=== PATIENT | male | born 1980 | race Caucasian/White ===

== ENCOUNTER 2023-02-24 21:10 | Inpatient (IN) | payer OTHER, SELFPAY ==
--- OUTSIDE RECORDS SUMMARY | 2023-02-24 21:12 | XMS_ITS | Continuity of Care Document ---
Author Name Unknown Organization [facility] Address [address] [place] [address]- Care Team Providers Care Fuselage Framer Name Role Phone Joao Oviedo MD Primary Care Physician [phone] Encounter [facility] ACCT R [id number] Date(s): 01/08/23 - 02/07/23 [facility]/[place] [address]- Attending Physician: Malgorzata Pulido Admitting Physician: Malgorzata Pulido Referring Physician: AdmtrMalgorzata Allergies, Adverse Reactions, Alerts No Known Allergies Immunizations Given and Recorded Vaccine Date Status Refusal Reason influenza virus vaccine, inactivated 10/15/22 Give n Medications ammonium lactate 12% topical cream See Instructions, Apply to feet 2 times a day, # 385 Gm, 3 Refills, Maintenance, 10/28/22 10:02:00 EST, Cream, [facility]/pharmacy #[id number], Partial fill upon patient request if the prescription is for a schedule II opioid drug., Apply to feet 2 times a day, 16... Start Date: 10/28/22 Status: Ordered cloNIDine 0.1 mg oral tablet 0.1 mg, 1, tablet, By Mouth, 2 times a day, PRN, Refills 0, Maintenance, Anxiety, 11/16/22 14:33:00EST, Partial fill upon patient request if the prescription is for a schedule II opioid drug. Start Date: 11/16/22 Status: Ordered hydrochlorothiazide 25 mg oral tablet 12.5 mg, 0.5, tablet, By Mouth, Daily, # 15 tablet, Refills 2, Tot. Refills 2, Maintenance, 12/30/22 10:40:00 EST, Route to Pharmacy Electronically, [facility]/pharmacy #[id number], Partial fill upon patient request if the prescription is for a schedule II opioid... Start Date: 12/30/22 Status: Ordered hydrOXYzine hydrochloride 50 mg oral tablet 1 tablet = 50 mg, By Mouth, Every 6 hours, PRN as needed for anxiety Start Date: 11/16/22 Status: Ordered LaMICtal 25 mg oral tablet 25 mg, 1, tablet, By Mouth, Daily, Refills 0, Maintenance, 11/16/22 14:33:00 EST, Partial fill uponpatient request if the prescription is for a schedule II opioid drug. Start Date: 11/16/22 Status: Ordered SEROquel 50 mg oral tablet 1 tablet = 50 mg, By Mouth, 2 times a day, 0 Refills, Maintenance, 11/16/22 14:32:00 EST, Partial fill upon patient request if the prescription is for a schedule II opioid drug. Start Date: 11/16/22 Status: Ordered sertraline 100 mg oral tablet 1 tablet = 100 mg, By Mouth, Daily, # 30 tablet, 1 Refills, Maintenance, 12/29/22 13:38:00 EST, Tablet, [facility]/pharmacy #[id number], Partial fill upon patient request if the prescription is for a schedule II opioid drug., 168, cm, 12/09/22 15:04:00 EST, Height... Start Date: 12/29/22 Status: Ordered thiamine 100 mg oral tablet 100 mg, 1, tablet, By Mouth, Daily, # 30 tablet, Refills 3, Tot. Refills 3, Maintenance, 10/28/22 10:02:00 EST, Route to Pharmacy Electronically, [facility]/pharmacy #[id number], Partial fill upon patient requestif the prescription is for a schedule II opioid alonso... Start Date: 10/28/22 Status: Ordered traZODone 150 mg oral tablet TAKE 1 TABLET BY MOUTH AT BEDTIME Start Date: 01/08/23 Status: Ordered Problem List Condition Confirmation Course Effective Dates Status H ealth Status Informant Bipolar II disorder Confirmed Active Hyperlipidemia Confirmed Active Hypertension Confirmed Active PTSD (post-traumatic stress disorder) Confirmed Active Social History Social History Type Response Smoking Status Former smoker, quit more than 30 days ago; Interested in cessation: No; Patient wants NRT during admission Yes entered on: 01/08/23 Sex Patient Care team information Care Team Personnel Name: Joao Oviedo MD Position: S Primary Care Physician Member Role: PCP Address: Address: [address] [place] [id number]- Name: Nan Garcia RN Position: S RN Member Role: Primary Care Nurse Name: Kelly Murguia RN Position: S RN Member Role: Primary Care Nurse Name: Reina Rodriguez RN Position: S RN Member Role: Primary Care Nurse Care Team Related Persons Name: CARLOS LAYTON Address: [address] [place] [address]
--- OUTSIDE RECORDS SUMMARY | 2023-02-24 21:12 | XMS_ITS | Continuity of Care Document ---
Author Name Unknown Organization [facility] Address [address] [place], [place] [id number]- Care Team Providers Care Disk Grinder Name Role Phone Joao Oviedo MD Primary Care Physician Encounter [facility] ACCT R [id number] Date(s): 12/29/22 - 01/28/23 [facility]/[place] [address]- Attending Physician: Malgorzata Pulido Admitting Physician: Malgorzata Pulido Referring Physician: AdmtrMalgorzata Allergies, Adverse Reactions, Alerts No Known Allergies Immunizations Given and Recorded Vaccine Date Status Refusal Reason influenza virus vaccine, inactivated 10/15/22 Give n Medications ammonium lactate 12% topical cream See Instructions, Apply to feet 2 times a day, # 385 Gm, 3 Refills, Maintenance, 10/28/22 10:02:00 EST, Cream, [facility]/pharmacy #[id number], Partial fill upon patient request if the [...] 12/30/22 10:40:00 EST, Route to Pharmacy Electronically, [facility]/pharmacy #[id number], Partial fill upon patient request if the [...] 1 Refills, Maintenance, 12/29/22 13:38:00 EST, Tablet, [facility]/pharmacy #[id number], Partial fill upon patient request if the prescription is for a schedule II opioid drug., 168, cm, 12/09/22 15:04:00 EST, Height... Start Date: 12/29/22 Status: Ordered thiamine 100 mg oral tablet 100 mg, 1, tablet, By Mouth, Daily, # 30 tablet, Refills 3, Tot. Refills 3, Maintenance, 10/28/22 10:02:00 EST, Route to Pharmacy Electronically, [facility]/pharmacy #[id number], Partial fill upon patient requestif the prescription [...] Care Physician Member Role: PCP Address: Address: [address] [place] [address] [place] [address]- Name: Nan Garcia RN Position: S RN Member Role: Primary Care Nurse Name: Kelly Murguia RN Position: S RN Member Role: Primary Care Nurse Name: Reina Rodriguez RN Position: S RN Member Role: Primary Care Nurse Care Team Related Persons Name: CARLOS LAYTON Address: [address] [place] [address]
--- OUTSIDE RECORDS SUMMARY | 2023-02-24 21:12 | XMS_ITS | Continuity of Care Document ---
Author Name Unknown Organization [facility] Address [address] [place] [id number]- Care Team Providers Care Audiometrist Name Role Phone Joao Oviedo MD Primary Care Physician [phone] Encounter [facility] Date(s): 12/23/22 - 02/11/[address] [address]- Attending Physician: Tristen Calderon MD Admitting Physician: Tristen Calderon MD Allergies, Adverse Reactions, Alerts No Known Allergies Immunizations Given and Recorded Vaccine Date Status Refusal Reason influenza virus vaccine, inactivated 10/15/22 Give n Medications ammonium lactate 12% topical cream See Instructions, Apply to feet 2 times a day, # 385 Gm, 3 Refills, Maintenance, 10/28/22 10:02:00 EST, Cream, [facility]/pharmacy #[id number], Partial fill upon patient request if the [...] 12/30/22 10:40:00 EST, Route to Pharmacy Electronically, [facility]/pharmacy #[id number], Partial fill upon patient request [...] 1 Refills, Maintenance, 12/29/22 13:38:00 EST, Tablet, [facility]/pharmacy #[id number], Partial fill upon patient request if the prescription is for a schedule II opioid drug., 168, cm, 12/09/22 15:04:00 EST, Height... Start Date: 12/29/22 Status: Ordered thiamine 100 mg oral tablet 100 mg, 1, tablet, By Mouth, Daily, # 30 tablet, Refills 3, Tot. Refills 3, Maintenance, 10/28/22 10:02:00 EST, Route to Pharmacy Electronically, [facility]/pharmacy #[id number], Partial fill upon patient requestif the prescription [...] Care Physician Member Role: PCP Address: Address: [address] [place] [id number] Name: Nan Garcia RN Position: S RN Member Role: Primary Care Nurse Name: Kelly Murguia RN Position: S RN Member Role: Primary Care Nurse Name: Reina Rodriguez RN Position: S RN Member Role: Primary Care Nurse Care Team Related Persons Name: CARLOS LAYTON Address: [address] [address]
--- OUTSIDE RECORDS SUMMARY | 2023-02-24 21:12 | XMS_ITS | Continuity of Care Document ---
Author Name Unknown Organization [facility] ter Address [address] [place] [id number]- Care Team Providers Care Senior Account Director Name Role Phone Joao Oviedo MD Primary Care Physician [place] [facility] [place] - 11/18/[address] [id number]- Encounter Diagnosis Laceration of left upper extremity(Final) - 11/16/22 Laceration of left upper extremity(Final) - 11/17/22 Discharge Disposition: Transfer to [facility] Attending Physician: Rand Griffin MD Admitting Physician: Obed Thomas DO Referring Physician: Not on Staff, Referring MD Allergies, Adverse Reactions, Alerts No Known Allergies Immunizations Given and Recorded Vaccine Date Status Refusal Reason influenza virus vaccine, inactivated 10/15/22 Give n Medications ammonium lactate 12% topical cream See Instructions, Apply to feet 2 times a day, # 385 Gm, 3 Refills, Maintenance, 10/28/22 10:02:00 EST, Cream, [id number], Partial fill upon patient request if the prescription is for a schedule II opioid drug., Apply to feet 2 times a day, 16... Start Date: 10/28/22 Status: Ordered cloNIDine 0.1 mg oral tablet 0.1 mg, 1, tablet, By Mouth, 2 times a day, # 60 tablet, Refills 3, Tot. Refills 3, Maintenance, 10/28/22 10:02:00 EST, Route to Pharmacy Electronically, [id number], Partial fill upon patientrequest if the prescription is for a schedule II op... Start Date: 10/28/22 Status: Ordered cloNIDine 0.1 mg oral tablet 0.1 mg, 1, tablet, By Mouth, 2 times a day, PRN, Refills 0, Maintenance, Anxiety, 11/16/22 14:33:00EST, Partial fill upon patient request if the prescription is for a schedule II opioid drug. Start Date: 11/16/22 Status: Ordered fluticasone 50 mcg/inh nasal spray 1 sprays, Nares, Both, 2 times a day, # 16 Gm, 5 Refills, Maintenance, 10/28/22 10:01:00 EST, [place], [id number], Partial fill upon patient request if the prescription is for a schedule II opioid drug., 1 sprays Nares, Both 2 times a day, 167,... Start Date: 10/28/22 Status: Ordered hydrochlorothiazide 25 mg oral tablet 12.5 mg, 0.5, tablet, By Mouth, Daily, # 15 tablet, Refills 3, Tot. Refills 3, Maintenance, 10/28/22 10:02:00 EST, [id number] fill upon patient request if the prescription is for a schedule II opioid... Start Date: 10/28/22 Status: Ordered hydrochlorothiazide 25 mg oral tablet 12.5 mg, 0.5, tablet, By Mouth, Daily Start Date: 11/16/22 Status: Ordered hydrOXYzine hydrochloride 50 mg oral tablet 1 tablet = 50 mg, By Mouth, Daily, PRN anxiety, PRN every 6 hours for anxiety, # 30 tablet, 3 Refills, Maintenance, 10/28/22 10:02:00 EST, Tablet, [id number], Partial fill upon patient request if the prescription is for a schedule II opioid dr... Start Date: 10/28/22 Status: Ordered hydrOXYzine hydrochloride 50 mg oral [...] mg, By Mouth, 2 times a day, # 60 tablet, 3 Refills, Maintenance, 10/28/22 10:02:00 EST, Tablet, [id number], Partial fill upon patient request if the prescription is for a schedule II opioid drug., 167, cm, 10/28/22 9:14:00 EST,... Start Date: 10/28/22 Status: Ordered SEROquel 50 mg oral tablet 1 tablet = 50 mg, By Mouth, 2 times a day, 0 Refills, Maintenance, 11/16/22 14:32:00 EST, Partial fill upon patient request if the prescription is for a schedule II opioid drug. Start Date: 11/16/22 Status: Ordered sertraline 100 mg oral tablet 1 tablet = 100 mg, By Mouth, Daily, # 30 tablet, 3 Refills, Maintenance, 10/28/22 10:02:00 EST, Tablet, [id number], Partial fill upon patient request if the prescription is for a schedule II opioid drug., 167, cm, 10/28/22 9:14:00 EST, Height,... Start Date: 10/28/22 Status: Ordered thiamine 100 mg oral tablet 100 mg, 1, tablet, By Mouth, Daily, # 30 tablet, Refills 3, Tot. Refills 3, Maintenance, 10/28/22 10:02:00 EST, Route to Pharmacy Electronically, [id number], Partial fill upon patient requestif the prescription is for a schedule II opioid alonso... Start Date: 10/28/22 Status: Ordered traZODone 150 mg oral tablet 1 tablet = 150 mg, By Mouth, Daily at bedtime, PRN Insomnia, PRN insomnia, # 30 tablet, 3 Refills, Maintenance, 10/28/22 10:02:00 EST, Tablet, [facility] #[id number], Partial fill upon patient request ifthe prescription is for a schedule II opioid drug.,... Start Date: 10/28/22 Status: Ordered traZODone 150 mg oral tablet 1 tablet = 150 mg, By Mouth, Daily at bedtime, 0 Refills, Maintenance, 11/16/22 14:33:00 EST, Partial fill upon patient request if the prescription is for a schedule II opioid drug. Start Date: 11/16/22 Status: Ordered Vitamin B1 100 mg oral tablet 100 mg, 1, tablet, By Mouth, Daily, Refills 0, Maintenance, 11/16/22 14:32:00 EST, Partial fill upon patient request if the prescription is for a schedule II opioid drug. Start Date: 11/16/22 Status: Ordered Zoloft 100 mg oral tablet 1 tablet = 100 mg, By Mouth, Daily, 0 Refills, Maintenance, 11/16/22 14:32:00 EST, Partial fill upon patient request if the prescription is for a schedule II opioid drug. Start Date: 11/16/22 Status: Ordered Problem List Condition Confirmation Course Effective Dates Status H ealth Status Informant Bipolar II disorder Confirmed Active Hyperlipidemia Confirmed Active Hypertension Confirmed Active PTSD (post-traumatic stress disorder) Confirmed Active Vital Signs Most recent to oldest [Reference Range]: 1 2 3 Height 168 cm (11/18/22 3:30 PM) 168 cm (11/17/22 3:06 PM) 168 cm (11/16/22 6:29 PM) Weight 73 kg (11/16/22 6:29 PM) Oxygen Saturation [94-100 %] 97 % (11/18/22 3:30 PM) 98 % (11/18/22 5:00 AM) 99 % (11/17/22 7:00 PM) Pulse Rate [55-90 bpm] 91 bpm *H* (11/18/22 3:30 PM) 64 bpm (11/18/22 5:00 AM) 100 bpm *H* (11/17/22 7:00 PM) Body Mass Index [18.5-24.99 kg/m2] 25.86 kg/m2 *H* (11/16/22 6:29 PM) Blood Pressure [90-138/55-84 mm Hg] 152/78mm Hg *H* (11/18/22 3:30 PM) 120/70mm Hg (11/18/22 5:00 AM) 140/73mm Hg *H* (11/17/22 7:00 PM) Respiratory Rate [16-30 br/min] 18 br/min (11/18/22 3:30 PM) 14 br/min *L* (11/18/22 5:00 AM) 16 br/min (11/17/22 7:00 PM) Temperature [96.8-100.4 DegF] 98.0 DegF (11/18/22 3:30 PM) 97.7 DegF (11/18/22 5:00 AM) 97.5 DegF (11/17/22 7:00 PM) Mode of Delivery (Oxygen) Room air (11/18/22 3:30 PM) Room air (11/18/22 5:00 AM) Room air (11/17/22 7:00 PM) Blood pressure sites Arm, right (11/18/22 3:30 PM) Arm, right (11/18/22 5:00 AM) Arm, right (11/17/22 7:00 PM) Temperature Route Oral (11/18/22 3:30 PM) Oral (11/18/22 5:00 AM) Oral (11/17/22 7:00 PM) Dry Weight 70 kg (11/16/22 6:29 PM) Weight Obtained Via Patient/family state d (11/16/22 6:29 PM) Dry Weight Obtained Via Bed scale (11/16/22 6:29 PM) Social History Social History Type Response Smoking Status 10 or more cigarette s (1/2 pack or more)/day in last 30 days; Interested in cessation: No; Patient wants NRT during admission Yes entered on: 10/14/22 Sex History and physical note * Jaime LORENZ, Roshan Iraheta: PERFORM, MODIFY Event Display: History and Physical Hospital Authored Date: Patient: ??CARLOS RIVERS ? Age:??42 Years?Sex:??Male?:??1980?? Chief Complaint/Reason for Consultation Left upper extremity laceration, suicidal attempt History of Present Illness 42-year-old male with history of hypertension, hyperlipidemia, bipolar 2 disorder, depression, anxiety,??and PTSD??brought to the??emergency room [place]-inflicted laceration to his left upper arm.?? He was endorsing suicidal ideation.?? He states he has been very depressed as his mother recently .?? He tried to cut his left upper arm with a razor blade at approximately 10:30 AM.?? First responders noted approximately 1/2 L of brightred blood on the scene, and the tourniquet was placed at 10:45 AM.?? He was brought to the emergency room for evaluation. ?? In the emergency room, the patient was evaluated by the trauma service with otherwise normal primary and secondary surveys.?? Tourniquet was removed at 11:08 AM, and distal pulses were noted to be with no active bleeding from the left antecubital area.?? The patient was given 2 g of IV Ancef along with a tetanus booster.?? The patient underwent closure of the left AC superficial wound with 4 interrupted sutures and dry dressing was placed.?? He was also noted to have 0.5 cm laceration to the left thenar eminence, for which Steri- Strips were placed.?? Trauma surgery has signed off, and the patient is admitted for psychiatric evaluation. ?? On my evaluation, patient denies taking any substances or alcohol use.?? He has not had recent fever or illness otherwise.?? He remains tearful at this time but endorses that he is safe in the exam room in the emergency room.?? He has not been taking any of his previously prescribed medications. Review of Systems Other than those positives as noted in the HPI above, the remaining comprehensive 14-point review of systems is negative. Objective ? Vital Signs?? Temperature: 98 DegF (11/16/22 11:44:00) Pulse Rate: 68 bpm (11/16/22 11:44:00) Respiratory Rate: 18 br/min (11/16/22 11:44:00) Systolic Blood Pressure: 133 mm Hg (11/16/22 11:44:00) Diastolic Blood Pressure: 80 mm Hg (11/16/22 11:44:00) Blood pressure sites: Arm, right (11/16/22 11:44:00) Mean Arterial Pressure: 98 mm Hg (11/16/22 11:44:00) Pulse Pressure: 53 mm Hg (11/16/22 11:44:00) Oxygen Saturation: 98 % (11/16/22 11:44:00) Mode of Delivery (Oxygen): Room air (11/16/22 11:44:00) Early Warning Score: 1 (11/16/22 12:13:45) ? Pain Scores 1 - 10 Pain Scale Score: 0 (11:44) ? Physical Exam General Appearance: Alert, appears stated age, tearful, answers questions appropriately HEENT: Normocephalic, atraumatic, PERRL, EOMI, no scleral icterus, no facial droop,??dry mucous membranes, no oropharynx lesions?? Neck: Supple, no JVD, no C-Spine tenderness, no LAD Cardiac: RRR, S1 & S2 present, no m / r / g appreciated Chest: Clear to auscultation bilaterally, no wheezing / ronchi / rales, no tenderness to percussion Abdomen: Soft, nontender, no distention, no rebound or guarding, no masses, no organomegaly, normalbowel sounds in all quadrants Extremities: No clubbing, cyanosis, or edema. ??2+ distal pulses. ??Capillary refill < 3 seconds.?Dry dressings in place to left AC and left hand Skin: Warm, dry Neuro: ??A & O x 3, CN III-XII intact, strength 5/5 of upper / lower extremities bilaterally, gross sensation intact Psych: ??Stable mood, appropriate affect Assessment/Plan Assessment:??42-year-old male with history of hypertension, hyperlipidemia, bipolar 2 disorder, depression, anxiety, and PTSD brought to the emergency room this [place] with a self-inflicted laceration to his left upper arm. He was endorsing suicidal ideation.??Trauma surgery has repaired his wounds and signed off.??He requires psychiatric evaluation. ?? Depression with suicidal ideation (F32.A):??Patient currently endorses??feeling safe in the emergency room??exam room.??He has not been taking any of his previously prescribed medications. 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 Resume previously prescribed sertraline, quetiapine,??and trazodone as needed. Hydroxyzine will be ordered as needed for anxiety. Psychiatric consultation requested. ?? Laceration of left upper extremity (S41.112A):??The patient??has undergone??laceration repair by the trauma surgery service??with 4 sutures??to the left AC and Steri-Strips to the left thenar eminence. He will need follow-up with surgery at approximately 1 to 2 weeks for suture removal. Dry dressings will be kept in place and changed daily. No further indication for antibiotics. ?? Hyponatremia (E87.1) Metabolic acidosis (E87.2) RICARDO (acute kidney injury) (N17.9):??I suspect the patient is mildly dehydrated on exam. He looks??somewhat dry. He has previously been on hydrochlorothiazide??but not taking recently. Check urine electrolytes, creatinine, urinalysis, and urine toxicology. Hold off HCTZ. Gentle IVF hydration tonight with LR at 100 cc/hr. Follow up metabolic panel in morning. ?? Hypertension (I10):??Blood pressure currently stable, not taking any medications. He has mild renal insufficiency with metabolic acidosis and mild hyponatremia as outlined. We are awaiting urine studies. Will monitor blood pressure off medications??for now??(previously was prescribed low-dose hydrochlorothiazide). ?? VTE Prophylaxis:??SCDs. ?VTE Prophylaxis Assessment:??VTE Prophylaxis Ordered ?? Code Status:??FULL. ?Order Code Status:??Code Status Ordered ?? Discharge Planning:??Disposition pending psychiatric consultation;??likely transfer to [facility] as he is medically cleared. ?? I spent a total of??75 minutes today reviewing the chart / medical records, evaluating the patient,evaluating and interpreting laboratory and imaging data, formulating and discussing the treatment plan, and documenting the encounter. ? Histories Allergies Allergies ?(Active and Proposed Allergies Only) NKA? (Severity: Unknown severity, Onset: Unknown) ? Past Medical History/Problem List Active Problems??(4) Bipolar II disorder Hyperlipidemia Hypertension PTSD (post-traumatic stress disorder) ? Past Surgical History No surgery history documented. ? Social History The patient lives with his father.?? His mother recently . Tobacco:?? 1/2-1 ppd cigarettes. ETOH:?? Denies. Drugs:?? Denies currently, previous cocaine and marijuana. ? Family History Family history of??depression and opioid use disorder in father. Family history of ETOH use disorder in mother. ? Medications Home Medications Ammonium Lactate 12% (ammonium lactate 12% topical cream)?APPLY TOPICALLY TO FEET TWO TIMES A DAY Erythromycin Ophthalmic (erythromycin 0.5% ophthalmic ointment)?APPLY 1/2 INCH RIBBON TO LEFT EYE FOUR TIMES A DAY DIRECTED Hydrochlorothiazide (hydrochlorothiazide 25 mg oral tablet)?TAKE 1/2 TABLET BY MOUTH EVERY DAY HydrOXYzine (hydrOXYzine hydrochloride 50 mg oral tablet)?TAKE 1 TABLET BY MOUTH EVERY 6 HOURS NEEDED FOR ANXIETY Miscellaneous Rx (VITAMIN B-1 100 MG TABS)?TAKE 1 TABLET BY MOUTH EVERY DAY Quetiapine (QUEtiapine 50 mg oral tablet)?TAKE 1 TABLET BY MOUTH 2 TIMES A DAY Sertraline (sertraline 100 mg oral tablet)?TAKE 1 TABLET BY MOUTH DAILY Trazodone (traZODone 150 mg oral tablet)?TAKE 1 TABLET BY MOUTH AT BEDTIME ? Results Recent Labs BLOOD BANK Blood Type O Positive ()?? 11/16/2022 11:09 Antibody Screen Negative ()?? 11/16/2022 11:09 ?? BLOOD COUNT & DIFF WBC 11.4 k/mm3 (High)?? 11/16/2022 11:17 RBC 5.10 m/mm3 ()?? 11/16/2022 11:17 Hgb 15.0 Gm/dL ()?? 11/16/2022 11:17 Hct 45.1 % ()?? 11/16/2022 11:17 MCV 88.4 femtoliters ()?? 11/16/2022 11:17 MCH 29.4 pg ()?? 11/16/2022 11:17 MCHC 33.3 g/dL ()?? 11/16/2022 11:17 Platelet Count 202 k/mm3 ()?? 11/16/2022 11:17 RDW-SD 42.5 femtoliters ()?? 11/16/2022 11:17 MPV 8.6 femtoliters (Low)?? 11/16/2022 11:17 Nucleated RBC (Automated) 0.0 #/100 WBC'S ()?? 11/16/2022 11:17 Abs. NRBC 0.0 k/mm3 ()?? 11/16/2022 11:17 Abs. Neut 8.0 k/mm3 (High)?? 11/16/2022 11:17 Abs. Lymph 2.0 k/mm3 ()?? 11/16/2022 11:17 Abs. [place] 1.2 k/mm3 ()?? 11/16/2022 11:17 Abs. Eo 0.1 k/mm3 ()?? 11/16/2022 11:17 Abs. Baso 0.0 k/mm3 ()?? 11/16/2022 11:17 Neut % 70.4 % ()?? 11/16/2022 11:17 Lymph % 17.2 % ()?? 11/16/2022 11:17 [place] % 10.7 % (High)?? 11/16/2022 11:17 Eos % 0.8 % ()?? 11/16/2022 11:17 Baso % 0.3 % ()?? 11/16/2022 11:17 Imm Gran 0.6 % ()?? 11/16/2022 11:17 Abs. Imm Gran 0.1 k/mm3 ()?? 11/16/2022 11:17 ?? CHEM GENERAL Sodium 132 mmol/L (Low)?? 11/16/2022 11:17 Potassium 4.5 mmol/L ()?? 11/16/2022 11:17 Chloride 94 mmol/L (Low)?? 11/16/2022 11:17 Bicarbonate Level 19 mmol/L (Low)?? 11/16/2022 11:17 Anion Gap 19 (High)?? 11/16/2022 11:17 Glucose Level 71 mg/dL ()?? 11/16/2022 11:17 BUN 25 mg/dL (High)?? 11/16/2022 11:17 Creatinine-Blood 1.1 mg/dL ()?? 11/16/2022 11:17 Estimated GFR Creatinine 54 ML/MIN/1.73 M2 ()?? 11/16/2022 11:17 Calcium 9.1 mg/dL ()?? 11/16/2022 11:17 Amylase 120 units/L (High)?? 11/16/2022 11:17 ?? COAG INR 1.1 ()?? 11/16/2022 11:17 Protime (PT) 11.5 seconds (High)?? 11/16/2022 11:17 APTT 28.2 seconds ()?? 11/16/2022 11:17 ?? MISC. CHEMISTRY Hold Red Top SPECIMEN DISCARDED AFTER 1 WEEK ()?? 11/16/2022 11:17 ?? TOXICOLOGY/TDM Ethanol, Serum or Plasma NONE DETECTED mg/dL ()?? 11/16/2022 11:17 ?? VIROLOGY COVID-19 by RT-PCR NEGATIVE ()?? 11/16/2022 11:09 ? Hospital Progress note * Gaby LORENZ, Rand Hayes: PERFORM, MODIFY Event Display: Progress Note Hospital Authored Date: Patient: ??CARLOS RIVERS ? Age:??42 Years?Sex:??Male?:??1980?? Subjective patient was seen and examined at the bedside still asking about prostate biopsy He denies active complaints of fever, chills, abdominal pain,??shortness of breath or chest pain Psychiatry on board,??inpatient??psych bed??search has begun Review of Systems As above otherwise negative Objective Measurements?? Height: 168 cm (11/18/22) Weight: 73 kg (11/16/22) Dry Weight: 70 kg (11/16/22) Body Mass Index:??25.86 kg/m2??High (11/16/22) ? Vital Signs?? Temperature: 98 DegF (11/18/22 15:30:00) Temperature Route: Oral (11/18/22 15:30:00) Pulse Rate:??91 bpm??High (11/18/22 15:30:00) Respiratory Rate: 18 br/min (11/18/22 15:30:00) Systolic Blood Pressure:??152 mm Hg??High (11/18/22 15:30:00) Diastolic Blood Pressure: 78 mm Hg (11/18/22 15:30:00) Blood pressure sites: Arm, right (11/18/22 15:30:00) Mean Arterial Pressure: 103 mm Hg (11/18/22 15:30:00) Pulse Pressure: 74 mm Hg (11/18/22 15:30:00) Oxygen Saturation: 97 % (11/18/22 15:30:00) Mode of Delivery (Oxygen): Room air (11/18/22 15:30:00) Early Warning Score: 0 (11/18/22 15:31:02) ? Intake/Output? 11/16 12:08 11/18 07:00 11/17 07:00 11/16 07:00 11/15 07:00 ?? 11/18 16:05 11/18 16:05 11/18 06:59 11/17 06:59 11/16 06:59 Intake ? 1600 ?0 ?400 ? 1200 ?0 Output ?0 ?0 ?0 ?0 ?0 Net Total ? 1600 ?0 ?400 ? 1200 ?0 ? Physical Exam General:??Young,??laying comfortably in bed, not in any distress Heart: S1-S2 heard, rate rhythm regular Lungs: Clear to auscultation Abdomen: Soft, nontender, nondistended, bowel sounds present Extremity:??No pedal edema, left??cubital fossa has??sutures in place.?? Suture??repair??clean, without any evidence of infection. Neuro: Alert and oriented, grossly no focal deficit Psych:??Depressed mood, flat affect _ Inpatient Medications Medications (16) Active SCHEDULED: (5) NaCl 0.9% Flush 3ml (NaCL 0.9% Flush) ??3 mL, IV Push, Every 8 hours Nicotine 14 mg / 24 hour Patch (Nicotine Topical) ??14 mg, Topically, Daily Quetiapine 25 mg Tablet (QUEtiapine 25 mg oral tablet) ??50 mg, By Mouth, 2 times a day Remove Patch (Remove ??Patch) ??1 each, Topically, Daily Sertraline 50 mg Tablet (sertraline 50 mg oral tablet) ??100 mg, By Mouth, Daily CONTINUOUS: (1) Lactated Ringers (1000 mL) Cont IV 1,000 mL (LR 1,000 mL) ??1,000 mL, IV Infusion, 100 mL/hr PRN: (10) Acetaminophen 325 mg Tablet (Acetaminophen Tablet) ??650 mg, By Mouth, Every 4 hours Dextromethorphan-Guaifenesin 20 mg-200 mg/10 mL Liqu UD (Robitussin DM Liquid) ??10 mL, By Mouth, Every 4 hours HydrOXYzine Pamoate 25mg Capsule (hydrOXYzine pamoate 25 mg oral capsule) ??25 mg, By Mouth, Every 6 hours Melatonin 3 mg Tablet (Melatonin Tablet) ??3 mg, By Mouth, Daily at bedtime NaCl 0.9% Flush 3ml (NaCL 0.9% Flush) ??3 mL, IV Push, Every 8 hours Olanzapine 5 mg Tablet (ZyPREXA 5 mg oral tablet) ??5 mg, By Mouth, 2 times a day Polyethylene Glycol 17 Gm Powder (MiraLax Powder) ??17 Gm 1 pack/packet, By Mouth, Daily Senna 8.6 mg / Docusate 50 mg tablet (Docusate/Senna Tablet) ??1 tablet, By Mouth, 2 times a day Simethicone 80 mg Chewable Tablet (Simethicone Tablet) ??80 mg, Chew, 3 times a day Trazodone 50 mg Tablet (traZODone 50 mg oral tablet) ??50 mg, By Mouth, Daily at bedtime ? Results Recent Labs BLOOD COUNT & DIFF WBC 7.5 k/mm3 ()?? 11/18/2022 02:46 RBC 4.52 m/mm3 (Low)?? 11/18/2022 02:46 Hgb 13.2 Gm/dL (Low)?? 11/18/2022 02:46 Hct 40.0 % (Low)?? 11/18/2022 02:46 MCV 88.5 femtoliters ()?? 11/18/2022 02:46 MCH 29.2 pg ()?? 11/18/2022 02:46 MCHC 33.0 g/dL ()?? 11/18/2022 02:46 Platelet Count 181 k/mm3 ()?? 11/18/2022 02:46 RDW-SD 42.0 femtoliters ()?? 11/18/2022 02:46 MPV 9.0 femtoliters (Low)?? 11/18/2022 02:46 Nucleated RBC (Automated) 0.0 #/100 WBC'S ()?? 11/18/2022 02:46 Abs. NRBC 0.0 k/mm3 ()?? 11/18/2022 02:46 Abs. Neut 4.8 k/mm3 ()?? 11/17/2022 00:44 Abs. Lymph 2.6 k/mm3 ()?? 11/17/2022 00:44 Abs. [place] 1.3 k/mm3 ()?? 11/17/2022 00:44 Abs. Eo 0.1 k/mm3 ()?? 11/17/2022 00:44 Abs. Baso 0.0 k/mm3 ()?? 11/17/2022 00:44 Neut % 53.4 % ()?? 11/17/2022 00:44 Lymph % 28.7 % ()?? 11/17/2022 00:44 [place] % 15.0 % (High)?? 11/17/2022 00:44 Eos % 1.5 % ()?? 11/17/2022 00:44 Baso % 0.3 % ()?? 11/17/2022 00:44 Imm Gran 1.1 % ()?? 11/17/2022 00:44 Abs. Imm Gran 0.1 k/mm3 ()?? 11/17/2022 00:44 ?? CHEM GENERAL Sodium 137 mmol/L ()?? 11/18/2022 02:46 Potassium 4.7 mmol/L ()?? 11/18/2022 02:46 Chloride 103 mmol/L ()?? 11/18/2022 02:46 Bicarbonate Level 27 mmol/L ()?? 11/18/2022 02:46 Anion Gap 7 ()?? 11/18/2022 02:46 Glucose Level 105 mg/dL (High)?? 11/18/2022 02:46 BUN 13 mg/dL ()?? 11/18/2022 02:46 Creatinine-Blood 1.0 mg/dL ()?? 11/18/2022 02:46 Estimated GFR Creatinine 101 ML/MIN/1.73 M2 ()?? 11/18/2022 02:46 Calcium 8.9 mg/dL ()?? 11/18/2022 02:46 Phosphorus 3.5 mg/dL ()?? 11/17/2022 00:44 Magnesium 1.9 mg/dL ()?? 11/17/2022 00:44 Protein, Total 5.6 Gm/dL (Low)?? 11/17/2022 00:44 Albumin 3.6 Gm/dL ()?? 11/17/2022 00:44 AG Ratio 1.8 ()?? 11/17/2022 00:44 Alkaline Phosphatase 67 units/L ()?? 11/17/2022 00:44 AST (SGOT) 74 units/L (High)?? 11/17/2022 00:44 ALT (SGPT) 38 units/L ()?? 11/17/2022 00:44 Bilirubin, Total 0.5 mg/dL ()?? 11/17/2022 00:44 ? Assessment/Plan Chief Complaint: Left upper extremity laceration, suicidal attempt ?? Diagnoses Laceration of left upper extremity ??(S41.112A) 1. ??Depression with suicidal ideation ??(F32.A) 2. ??Laceration of left upper extremity ??(S41.112A) 3. ??Hyponatremia ??(E87.1) 4. ??Metabolic acidosis ??(E87.2) 5. ??RICAROD (acute kidney injury) ??(N17.9) 6. ??Hypertension ??(I10) ?? 42-year-old male with history of hypertension, hyperlipidemia, bipolar 2 disorder, depression, anxiety, and PTSD brought to the emergency room [place] self-inflicted laceration to his left upper arm. He was endorsing suicidal ideation.??Trauma surgery has repaired his wounds and signed off.??He requires psychiatric evaluation. ?? Depression with suicidal ideation (F32.A):?? Seen by psychiatry in consult today. ??Continues to have significant??depression, and at risk of??harming self. ??Psychiatry recommended continuing??one-to-one constant supervision. ??Will need inpatient psychiatric admission??when medically cleared. ??Discussed with??psychiatry, patient most likely??will be cleared this afternoon/tomorrow morning. ??Will need??bed search for psychiatric??hospitalization. Continue current dose??of sertraline, quetiapine and??trazodone. Hydroxyzine as needed for anxiety.? Add PRN??Zyprexa 5mg q6 hours??for agitation per psychiatry recommendations Sutures removed, inpatient psych bed search has begun. ?? Laceration of left upper extremity (S41.112A):??The patient??has undergone??laceration repair by the trauma surgery service??with 4 sutures??to the left AC and Steri-Strips to the left thenar eminence. He will need follow-up with surgery at approximately 1 to 2 weeks for suture removal. Dry dressings will be kept in place and changed daily. No further indication for antibiotics. ?? Hyponatremia (E87.1) Metabolic acidosis (E87.2) Dehydration. U tox positive for cocaine Hyponatremia and metabolic acidosis improved with IV fluids. Creatinine stable. Will discontinue IV fluids. ?? Elevated??PSA. Patient asking about prostate biopsy??while he is here.? Informed patient??as an outpatient and procedure and will be??done??outpatient.?? However patient did state that??one of his reasons for depression was??that??he was informed that??he may have prostate cancer.?? I??discussed with urology PA,??confirmed that biopsy cannot be done inpatient.?? No she does not??patient to follow-up with urology??at the earliest??possible outpatient.?? Patientto contact??[facility] urology at [phone]??scheduling biopsy. ?? Hypertension (I10):??Blood pressure currently stable, not taking any medications. Will monitor blood pressure off medications??for now??(previously was prescribed low-dose hydrochlorothiazide). ? VTE Prophylaxis:??SCDs. ?VTE Prophylaxis Assessment:??VTE Prophylaxis Ordered ?? Code Status:??FULL. ?Order Code Status:??Code Status Ordered ?? Discharge Planning:??He is medically clear??for discharge to inpatient Psych bed ? * Kelley Goldstein MD: PERFORM, SIGN, VERIFY Event Display: Progress Note Hospital Authored Date: [id number] Patient: CARLOS RIVERS Age: 42 years Sex: Male : 1980 Associated Diagnoses: None Author: Kelley Goldstein MD Consultation Information Patient medically cleared. He has been referred to crisis team for inpatient psychiatric bed search. Please continue safety precautions including 1:1. He cannot leave AMA. Kelley Goldstein MD Psychiatry Consultation Service * Magdalena Langston LPN: PERFORM, SIGN, VERIFY Event Display: Progress Note Hospital Authored Date: [id number] Patient: CARLOS RIVERS Age: 42 years Sex: Male : 1980 Associated Diagnoses: None Author: Magdalena Langston LPN Findings Evaluation Pt alert and oriented x 4. Flat effect. Able to make his needs known. Denies pain/discomfort. Refusing pm meds. Pt denies any self harm this shift. 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 Pt resting in bed. Bed locked and in the lowest position. Call alvarez in reach. Safety maintained. . Note * Nabila Soto: PERFORM Event Display: Discharge/Transfer Note Hospital Authored Date: [id number] Nursing Discharge Note Entered On: 11/18/2022 18:39 EST Performed On: 11/18/2022 18:38 EST by Nabila Soto Nursing Discharge Note 2 Discharge Time : 11/18/2022 18:30 EST Discharge Level of Care at Discharge : Psychiatric Facility/Unit Patient Left Unit Via : Ambulance Patient Accompanied Off Unit with : Responsible adult DC Instructions Provided & Signed by Pt : Unable Patient Understands D/C Instructions : Unable Patient Instructions Discharge Signed : No Did Pt have Specialty Bed or Wound Vac : No Nabila Soto - 11/18/2022 18:38 EST Patient Care team information Care Team Personnel Name: Joao Oviedo MD Position: [facility] Primary Care Physician Member Role: PCP Address: Address: [address] [place] [address]- Name: Nan Garcia RN Position: [facility] RN Member Role: Primary Care Nurse Name: Leanna Mosley RN Position: [facility] RN Member Role: Primary Care Nurse Name: Kelly Murguia RN Position: [facility] RN Member Role: Primary Care Nurse Name: Reina Rodriguez RN Position: [facility] RN Member Role: Primary Care Nurse Name: *[facility], Trauma Attending Position: [facility] ED Attendings Patient Name: *[facility], Trauma Resident Position: [facility] ED Medicine MD Name: Mickie Adorno RN Position: [facility] ED RN W/OE and Tasks Member Role: Patient Care Provider Name: Ana Nice Position: [facility] ED TA [facility] Care Team Related Persons Name: CARLOS RIVERS Address: [address] [address]
--- OUTSIDE RECORDS SUMMARY | 2023-02-24 21:12 | XMS_ITS | Continuity of Care Document ---
Author Name Unknown Organization [facility] Address [address] [place] [id number]- Care Team Providers Care Sonography Technician Name Role Phone Joao Oviedo MD Primary Care Physician [phone] [id number] 12/29/22 - 01/28/23 [facility]/[place] [address]- [place] Allergies, Adverse Reactions, Alerts No Known Allergies Immunizations Given and Recorded Vaccine Date Status Refusal Reason influenza virus vaccine, inactivated 10/15/22 Give n Medications ammonium lactate 12% topical cream See Instructions, Apply to feet 2 times a day, # 385 Gm, 3 Refills, Maintenance, 10/28/22 10:02:00 EST, Cream, [facility]/pharmacy #[id number], Partial fill upon patient request if the [...] 12/30/22 10:40:00 EST, Route to Pharmacy Electronically, [facility]/pharmacy #[id number], Partial fill upon patient request if [...] 1 Refills, Maintenance, 12/29/22 13:38:00 EST, Tablet, [facility]/pharmacy #[id number], Partial fill upon patient request if the prescription is for a schedule II opioid drug., 168, cm, 12/09/22 15:04:00 EST, Height... Start Date: 12/29/22 Status: Ordered thiamine 100 mg oral tablet 100 mg, 1, tablet, By Mouth, Daily, # 30 tablet, Refills 3, Tot. Refills 3, Maintenance, 10/28/22 10:02:00 EST, Route to Pharmacy Electronically, [facility]/pharmacy #[id number], Partial fill upon patient requestif the prescription [...] team information Care Team Personnel Name: Joao Oivedo MD Position: [facility] Primary Care Physician Member Role: PCP Address: Address: [address] [place] [id number] Name: Nan Garcia RN Position: S RN Member Role: Primary Care Nurse Name: Kelly Murguia RN Position: S RN Member Role: Primary Care Nurse Name: Reina Rodriguez RN Position: [facility] RN Member Role: Primary Care Nurse Care Team Related Persons Name: CARLOS LAYTON Address: [address] [address]
--- OUTSIDE RECORDS SUMMARY | 2023-02-24 21:12 | XMS_ITS | Continuity of Care Document ---
Author Name Unknown Organization [facility] Address [address] [place] [address]- Care Team Providers Care Product Safety Professional Name Role Phone Joao Oviedo MD Primary Care Physician [phone] [id number] - [facility]/28/23 [facility]/[place] [address]- [place] Allergies, Adverse Reactions, Alerts No Known Allergies Immunizations Given and Recorded Vaccine Date Status Refusal Reason influenza virus vaccine, inactivated 10/15/22 Give n Medications ammonium lactate 12% topical cream See Instructions, Apply to feet 2 times a day, # 385 Gm, 3 Refills, Maintenance, 10/28/22 10:02:00 EST, Cream, [facility]/pharmacy #[id number], Partial fill upon patient request if the [...] Route to Pharmacy Electronically, [facility]/pharmacy #[id number], Partial fill upon patient requestif the prescription [...] Team Personnel Name: Joao Oviedo MD Position: [facility] Primary Care Physician Member Role: PCP Address: Address: [address] [place] [id number] Name: Nan Garcia RN Position: S RN Member Role: Primary Care Nurse Name: Kelly Murguia RN Position: S RN Member Role: Primary Care Nurse Name: Reina Rodriguez RN Position: [facility] RN Member Role: Primary Care Nurse Care Team Related Persons Name: CARLOS LAYTON Address: [address] [address]
--- OUTSIDE RECORDS SUMMARY | 2023-02-24 21:12 | XMS_ITS | Continuity of Care Document ---
Author Name Unknown Organization [facility] ter Address [address] [place] [address]- Care Team Providers Care Food Service Helper Name Role Phone Joao Oviedo MD Primary Care Physician [place] [facility] [place] 11/19/22 - 01/10/[address] [address]- Attending Physician: Tristen Calderon MD Admitting Physician: Tristen Calderon MD Allergies, Adverse Reactions, Alerts No Known Allergies Immunizations Given and Recorded Vaccine Date Status Refusal Reason influenza virus vaccine, inactivated 10/15/22 Give n Medications ammonium lactate 12% topical cream See Instructions, Apply to feet 2 times a day, # 385 Gm, 3 Refills, Maintenance, 10/28/22 10:02:00 EST, Cream, [facility]/pharmacy #[id number], Partial fill upon patient request if the [...] 12/30/22 10:40:00 EST, Route to Pharmacy Electronically, [facility]/pharmacy #[id number], Partial fill upon patient request if the [...] 1 Refills, Maintenance, 12/29/22 13:38:00 EST, Tablet, [facility]/pharmacy #[id number], Partial fill upon patient request if the prescription is for a schedule II opioid drug., 168, cm, 12/09/22 15:04:00 EST, Height... Start Date: 12/29/22 Status: Ordered thiamine 100 mg oral tablet 100 mg, 1, tablet, By Mouth, Daily, # 30 tablet, Refills 3, Tot. Refills 3, Maintenance, 10/28/22 10:02:00 EST, Route to Pharmacy Electronically, [facility]/pharmacy #[id number], Partial fill upon patient requestif the prescription [...] Most recent to oldest [Reference Range]: 1 Height 168 cm (12/09/22 3:04 PM) Weight 72.7 kg (12/09/22 3:04 PM) Body Mass Index [18.5-24.99 kg/m2] 25.76 kg/m2 *H* (12/09/22 3:04 PM) Dry Weight 72.7 kg (12/09/22 3:04 PM) Weight Obtained Via Patient/family state d (12/09/22 3:04 PM) Dry Weight Obtained Via Patient/family s tated (12/09/22 3:04 PM) Social History Social History Type Response Smoking Status Former smoker, quit more than 30 days ago; Interested in cessation: No; Patient wants NRT during admission Yes entered on: 01/08/23 Sex Note * Event Display: Adult Preadmission Health Questionnaire Authored Date: Patient Care team information Care Team Personnel Name: Joao Oviedo MD Position: [facility] Primary Care Physician Member Role: PCP Address: Address: [address] [place] [address] Name: Nan Garcia RN Position: [facility] RN Member Role: Primary Care Nurse Name: Kelly Murguia RN Position: [facility] RN Member Role: Primary Care Nurse Name: Reina Rodriguez RN Position: [facility] RN Member Role: Primary Care Nurse Care Team Related Persons Name: CARLOS LAYTON Address: [address] [address]
--- OUTSIDE RECORDS SUMMARY | 2023-02-24 21:12 | XMS_ITS | Continuity of Care Document ---
Author Name Unknown Organization [facility] ter Address [address] [place] [address]- Care Team Providers Care Transfer Agent Name Role Phone Joao Oviedo MD Primary Care Physician [place] [facility] [place] - 01/06/[address] [address]- Allergies, Adverse Reactions, Alerts No Known Allergies Immunizations Given and Recorded Vaccine Date Status Refusal Reason influenza virus vaccine, inactivated 10/15/22 Give n Medications ammonium lactate 12% topical cream See Instructions, Apply to feet 2 times a day, # 385 Gm, 3 Refills, Maintenance, 10/28/22 10:02:00 EST, Cream, [facility]/pharmacy #[id number], Partial fill upon patient request if the [...] 12/30/22 10:40:00 EST, Route to Pharmacy Electronically, [facility]/pharmacy #[id number], Partial fill upon patient request if the [...] 1 Refills, Maintenance, 12/29/22 13:38:00 EST, Tablet, [facility]/pharmacy #[id number], Partial fill upon patient request if the prescription is for a schedule II opioid drug., 168, cm, 12/09/22 15:04:00 EST, Height... Start Date: 12/29/22 Status: Ordered thiamine 100 mg oral tablet 100 mg, 1, tablet, By Mouth, Daily, # 30 tablet, Refills 3, Tot. Refills 3, Maintenance, 10/28/22 10:02:00 EST, Route to Pharmacy Electronically, [facility]/pharmacy #[id number], Partial fill upon patient requestif the prescription is for a schedule II opioid alonso... Start Date: 10/28/22 Status: Ordered Problem List Condition Confirmation Course [...] during admission Yes entered on: 10/14/22 Sex Patient Care team information Care Team Personnel Name: Joao Oviedo MD Position: [facility] Primary Care Physician Member Role: PCP Address: Address: [address] [place] [address]- [place] Name: Nan Garcia RN Position: S RN Member Role: Primary Care Nurse Name: Kelly Murguia RN Position: S RN Member Role: Primary Care Nurse Name: Reina Rodriguez RN Position: S RN Member Role: Primary Care Nurse Care Team Related Persons Name: CARLOS LAYTON Address: [address] [place] [address]
[2023-02-24 22:00] VITALS: BMI 25.8
[2023-02-24] MEDS: hydrOXYzine HCL 25 MG TABLET PO (22:58)
[2023-02-24] MEDS: Acetaminophen 325 MG TABLET 650 MG PO (22:58)
[2023-02-24] MEDS: traZODone HCL 50 MG TABLET PO (22:58)
[2023-02-24] MEDS: cloNIDine HCL 0.1 MG TABLET PO (22:58)
--- NOTE | 2023-02-25 01:11 | PC.ADMIT ---
21:15 Pt. arrived via ambulance from [facility] ED. Upon arrival he signed a CV. He was cooperative with the admission process, though somewhat irritable as he stated that the admission process was very anxiety producing for him. He was medicated for sleep and given a snack. He sat in the kitchen and was social with peers, then he retired to his room. Though there is no mention of substance abuse in crisis assessment pt's. U-tox was positive for cocaine and he says he is hoping to get into a treatment program for his cocaine use disorder upon discharge from .
[2023-02-25] MEDS: hydrOXYzine HCL 25 MG TABLET PO (08:36)
[2023-02-25] MEDS: cloNIDine HCL 0.1 MG TABLET PO ×2 (08:36→16:09)
[2023-02-25 09:02] LABS: Alanine Aminotransferase 37 U/L (0-40); Albumin Level 3.5 g/dL (3.5-5.0); Alkaline Phosphatase 68 U/L (39-117); Anion Gap 10 (12-20); Aspartate Amino Transferase 27 U/L (5-37); Bilirubin Total 0.3 mg/dL (0.0-1.0); Blood Urea Nitrogen 15 mg/dL (9-16); Calcium 8.9 mg/dL (8.4-10.2); Carbon Dioxide 30 mmol/L (22-29); Chloride 104 mmol/L (96-108); Cholesterol 136 mg/dL; Creatinine Clr Calc Pharmacy 86.2; Estimated Glomerular Filt Rate > 60; Glucose Fasting 98 mg/dL (60-99); HDL Cholesterol 26 mg/dL; LDL Cholesterol Calculated 93 mg/dl; Sodium 139 mmol/L (135-145); Total Protein 5.8 g/dL (6.5-8.0); Triglycerides 89 mg/dL
[2023-02-25 09:05] VITALS: BP 132/84; PULSE 75; RESP 18; TEMP 36.2; O2SAT 99
--- NOTE | 2023-02-25 10:35 | P.HPPS_ITS ---
[facility] Date of Service: 02/25/23 Chief Complaint: Unspecified Depressive D/O, Adjustment D/O unspeci Sources of Information: patient interviewed, chart reviewed and crisis/core team assessment reviewed HPI Subjective Notes: Edwards Warning and Conditional Voluntary Narrative: Patient is a 43-year-old male who presents with depression, PTSD and suicidality and the face of substance abuse, going off medication and numerous psychosocial stressors. Patient reports he has been incarcerated for years it was recently released this past August. It has been very hard for him to adapt and he was psychiatrically hospitalized once in October 2022 and then again this November 2022; after last hospitalization he started doing better on Zoloft and m aintained employment. However patient had continued anxiety, PTSD symptoms substance abuse which ultimately her his relationships and interfered with going to work. He lost his job this past week for not showing up to work. Patient felt in despair and wanted to end his life however he remembered a promise he made his father that he would present for help before he self harmed. Patient endorses PTSD symptoms having nightmares 3-4 times per week; denies history of manic type episodes or behaviors; drinks about 6 beers/5 shots per night but not every single day; last drink was 4 days ago and he denies any withdrawal symptoms. Patient uses cocaine only occasionally and only if he is drinking and it is offered. Patient wants to get back on Zoloft. He is eager to pursue treatment for alcoholism and is eager to have a productive life. Past Psychiatric History: Psychiatrically hospitalized October 2022 and then again November 2022 Patient was started on Zoloft which was helpful. Medical Evaluation Reviewed: Hospitalist Lynda Pending [facility] Medical History (Updated 02/26/23 @ 17:39 by Vic Alexis MD) Alcohol use disorder MDD (major depressive disorder), recurrent episode, moderate PTSD (post-traumatic stress disorder) Family History: Mother: Substance abuse, alcoholism Father: Substance abuse Social History: Patient incarcerated for past 20 years; released August 2022 Father sober and supportive Mother in 2013 Substance History: Alcohol abuse for the past 6 months, several days a week Trauma History: History of trauma Diagnostics Vital Signs (24Hr): Vital Signs - 24 hr 02/25/23 09:05 Temperature 97.1 F Pulse Rate 75 Respiratory Rate 18 Blood Pressure 132/84 Pulse Oximetry 99 Oxygen Delivery Method Room Air BMI result Body Mass Index 25.8 Labs 02/25/23 08:00 Labs: Laboratory Results - last 48 hr 02/25/23 08:00 Sodium 139 Potassium 5.0 Chloride 104 Carbon Dioxide 30 H Anion Gap 10 L BUN 15 Creatinine 0.98 Estim Creat Clear Calc 86.2 Estimated GFR > 60 Fasting Glucose 98 Calcium 8.9 Total Bilirubin 0.3 AST 27 ALT 37 Alkaline Phosphatase 68 Total Protein 5.8 L Albumin 3.5 Triglycerides 89 Cholesterol 136 LDL Cholesterol, Calc 93 HDL Cholesterol 26 Meds/Allergies Allergies Allergies Allergy/AdvReac Type Severity Reaction Status Date / Time No Known Allergies Allergy Verified 02/24/23 22:36 Mental Status Exam Mental Status Exam Narrative: Pt is alert and oriented; behavior is cooperative, polite and calm;patient is not in distress; dressed in casual attire, well groomed; mood is described as depressed and affect congruent; eye contact appropriate; Speech is a little soft, but normal rate and prosody; some psychomotor retardation present; thought process is organized and goal directed; Thought content is on getting stable, treatment; otherwise pertinent to relevant topics and without any delusional content, paranoid ideations or grandiosity; denies any SI/HI. There is no evide nce of perceptual disturbance. Patients insight and judgment appear intact. Assessment & Plan Assessment & Plan (1) MDD (major depressive disorder), recurrent episode, moderate: Status: Acute Code(s): F33.1 - Major depressive disorder, recurrent, moderate (2) PTSD (post-traumatic stress disorder): Status: Acute Code(s): F43.10 - Post-traumatic stress disorder, unspecified (3) Alcohol use disorder: Status: Acute Code(s): F10.90 - Alcohol use, unspecified, uncomplicated Plan Patient is a 43-year-old male who presents with depression, PTSD and suicidality and the face of substance abuse, going off medication and numerous psychosocial stressors. -patient has been incarcerated for half of his life; struggling to adjust and struggling with both MDD and PTSD symptoms. Patient said it was somewhat of an accident that he started abusing alcohol, not used to having the freedom to drink. Patient wants treatment for mood and also alcoholism. Plan: CV Q 15 minute checks Restart Zoloft and titrate back to home dose of 100 mg Start prazosin 1 mg q.h.s. for nightmares Restart trazodone 150 mg q.h.s. 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 No changes have occurred unless specified. If the History and Physical was not performed prior to admission, the Hospitalist's service will be consulted for completing the admission physical. Time Spent With Patient Time: Total time managing care of this patient today ____ minutes.
--- NOTE | 2023-02-25 12:39 | HO.PM.IMCN ---
History of Present Illness Data of Consult Service Date: 02/25/23 Primary Care Provider: Unknown Physician HPI Reason for consult: Admission H&P Pt is a 43-year-old male with a PMH significant for?HTN, anxiety, and depression who is admitted to M[facility] psychiatry unit for increasing anxiety and depression with a plan to cut himself. Medical consult for admission H&P. ?Patient states that he has been having pleuritic chest pain with inspiration since experiencing a fall at work last . Patient went to the ED at that time and was found to have an acute right lateral 5th rib fracture. Patient has been treated conservatively and notes that the pain has improved since last week. Patient also notes that at his last PCP checkup his PSA levels were found to be elevated, but he missed his scheduled appointment for a prostate biopsy. Patient otherwise has no acute medical complaints at this time. Denies chest pain/pressure, palpitations. No shortness of breath. Denies fever, chills, nausea, vomiting, diarrhea, abdominal pain. Labs reviewed, unremarkable. Review of Systems Review of Systems: Right-sided pleuritic chest pain with inspiration, improved since last week Right sided anterior chest wall tenderness Patient otherwise has no acute medical complaints at this time Yes all other systems are reviewed and are negative PMFSH Social History Currently Displaying Signs/Symptoms of Drug Intoxication Withdrawal: No Advance Directives: No Advance Directives Information Provided: No Do you have thoughts of harming others: None Do you have a plan to hurt others: No Plan Meds Allergies Allergy/AdvReac Type Severity Reaction Status Date / Time No Known Allergies Allergy Verified 02/24/23 22:36 Active Medications: Current Medications Acetaminophen (Acetaminophen 325 Mg Tablet) 650 mg PO Q6H PRN PRN Reason: Headache/Pain Mild Scale (1-3) Last Admin: 02/24/23 22:58 Dose: 650 mg Al Hydroxide/Mg Hydroxide (Magnesium Hydrox/Alum Hydrox 30 Ml Oral.Susp) 30 ml PO Q6H PRN PRN Reason: Heartburn/Nausea Clonidine HCl (Clonidine Hcl 0.1 Mg Tablet) 0.1 mg PO Q4H PRN; Protocol PRN Reason: anxiety/restlessness Hydroxyzine HCl (Hydroxyzine Hcl 25 Mg Tablet) 25 mg PO Q6H PRN PRN Reason: Anxiety Last Admin: 02/25/23 08:36 Dose: 25 mg Magnesium Hydroxide (Milk Of Magnesia 30 Ml Oral.Susp) 30 ml PO DAILY PRN PRN Reason: Constipation Prazosin HCl (Prazosin Hcl 1 Mg Capsule) 1 mg PO BEDTIME RAUL; Protocol Sertraline HCl (Sertraline Hcl 50 Mg Tablet) 50 mg PO DAILY RAUL Trazodone HCl (Trazodone Hcl 50 Mg Tablet) 150 mg PO BEDTIME PRN PRN Reason: Insomnia Physical Exam Vital Signs and Narrative: Vital Signs: Last Vital Signs Temp 97.1 F 02/25/23 09:05 Pulse 75 02/25/23 09:05 Resp 18 02/25/23 09:05 BP 132/84 02/25/23 09:05 Pulse Ox 99 02/25/23 09:05 O2 Del Method Room Air 02/25/23 09:05 BMI result Body Mass Index 25.8 Constitutional: Alert, in no acute distress. Mental Status: Oriented to person, place and time. Eyes: Pupils are equal, round, and reactive to light. Ear, Nose, and Throat: Oropharynx clear, mucous membranes moist. Ears and nose without deformities. Trachea midline. Respiratory: Clear to auscultation bilaterally. No wheezing, rales, or rhonchi. Cardiovascular: S1, S2 regular. No murmurs, rubs, or gallops. Gastrointestinal: Abdomen soft, non-tender, non-distended. Normal bowel sounds. Neurologic: Cranial nerves II-XII are grossly intact bilaterally. No focal neurological deficits. Moves all extremities spontaneously. Skin: No rashes or lesions noted. Musculoskeletal: Lateral aspect of upper right anterior chest wall tender to palpation. Extremities: No edema. Psychiatric: Normal mood and affect. Results Labs 02/25/23 08:00 Labs: Laboratory Results - last 24 hr 02/25/23 08:00 Anion Gap 10 L Estim Creat Clear Calc 86.2 Estimated GFR > 60 Fasting Glucose 98 Calcium 8.9 Total Bilirubin 0.3 AST 27 ALT 37 Alkaline Phosphatase 68 Total Protein 5.8 L Albumin 3.5 Triglycerides 89 Cholesterol 136 LDL Cholesterol, Calc 93 HDL Cholesterol 26 Assessment and Plan (1) Routine history and physical examination of adult: Status: Acute Plan Pt is a 43-year-old male with a PMH significant for?HTN, anxiety, and depression who is admitted to [facility] psychiatry unit for increasing anxiety and depression with a plan to cut himself. Medical consult for admission H&P. Mood disorder Plan as per Psychiatry Acute rib fracture Patient with acute right lateral 5th rib fracture from fall at work on 02/18/2023 Patient experiencing right-sided pleuritic chest pain, improved from last week Continue conservative treatment, acetaminophen for pain HTN Pt with a history of HTN, not currently on home medications BP currently WNL Monitor BP, consider starting on amlodipine 5 mg if SBP consistently >140 Elevated PSA levels Patient states PCP found his PSA levels elevated Patient missed scheduled prostate biopsy Follow-up outpatient for biopsy Thank you for allowing us to participate in the care of this patient. Signing off at this time. Please let us know if there are any acute complaints or questions. Time Spent With Patient Time: Total time managing care of this patient today ____ minutes.
[2023-02-25] MEDS: Sertraline HCL 25 MG TABLET PO (12:49)
[2023-02-25 15:10] VITALS: BMI 27.2
[2023-02-25 16:11] VITALS: BP 137/75; PULSE 77
[2023-02-25] MEDS: Prazosin HCL 1 MG CAPSULE PO (20:39)
[2023-02-25] MEDS: traZODone HCL 50 MG TABLET 150 MG PO (20:39)
[2023-02-25 20:41] VITALS: BP 128/87; PULSE 82
--- NOTE | 2023-02-25 21:00 | MHC.RECOVSUP ---
? Reason for consult:[place] o? Current location:[facility]? o? Identified substance use concern:? -? Support ? Intervention: o? Community resources provided ? Plan: o? Follow up tomorrow? ? Additional information:Pt declined to meet with JENNIFER gonzales, RC will follow up with this pt tomorrow.
[2023-02-26 07:56] VITALS: BP 146/83; PULSE 74; RESP 16; TEMP 36.3; O2SAT 99
[2023-02-26] MEDS: Sertraline HCL 50 MG TABLET PO (08:16)
[2023-02-26] MEDS: Acetaminophen 325 MG TABLET 650 MG PO ×3 (09:03→20:32)
[2023-02-26] MEDS: hydrOXYzine HCL 25 MG TABLET PO ×2 (11:39→17:43)
[2023-02-26] MEDS: cloNIDine HCL 0.1 MG TABLET PO (14:43)
[2023-02-26 14:46] VITALS: BP 156/98; PULSE 80; O2SAT 98
[2023-02-26] MEDS: lisinopriL 10 MG TABLET PO (15:47)
--- NOTE | 2023-02-26 17:42 | P.PNPSI_ITS ---
Subjective Subjective Date of Service: 02/26/23 Reason For Visit: Unspecified Depressive D/O, Adjustment D/O unspeci Interim History: Met with patient; discussed with team Patient reports that he is still quite depressed however he is hopeful and knows that he will climb out of this depression and get stable and move on with his life. He said he had very hard time sleeping last night due to nightmares and did not want to go back to sleep afterwards. Agrees to increase prazosin dose. Patient reports that he is normally on 3 antihypertensives, lisinopril, amlodipine and hydrochlorothiazide; also that he has to take clonidine 0.3 mg. Despite depression, patient said that he is getting much from the groups and also from interacting with his peers. He had a positive experience for he shared his situation with peer who found his advice helpful. Mental Status Exam Mental Status Exam Narrative: Pt is alert and oriented; behavior is cooperative, polite and calm;patient is not in distress; dressed in casual attire, well groomed; mood is described as depressed and affect congruent; eye contact appropriate; Speech is a little soft, but normal rate and prosody; some psychomotor retardation present; thought process is organized and goal directed; Thought content is on getting stable, treatment; otherwise pertinent to relevant topics and without any delusional c ontent, paranoid ideations or grandiosity; denies any SI/HI. There is no evidence of perceptual disturbance. Patients insight and judgment appear intact. Diagnostics Vital Signs (24Hr): Vital Signs - 24 hr 02/25/23 20:41 02/26/23 07:56 02/26/23 14:46 Temperature 97.4 F Pulse Rate 82 74 80 Respiratory Rate 16 Blood Pressure 128/87 146/83 H 156/98 H Pulse Oximetry 99 98 Oxygen Delivery Method Room Air Room Air BMI result Body Mass Index 27.2 Labs 02/25/23 08:00 Labs: Laboratory Results - last 48 hr 02/25/23 08:00 Sodium 139 Potassium 5.0 Chloride 104 Carbon Dioxide 30 H Anion Gap 10 L BUN 15 Creatinine 0.98 Estim Creat Clear Calc 86.2 Estimated GFR > 60 Fasting Glucose 98 Calcium 8.9 Total Bilirubin 0.3 AST 27 ALT 37 Alkaline Phosphatase 68 Total Protein 5.8 L Albumin 3.5 Triglycerides 89 Cholesterol 136 LDL Cholesterol, Calc 93 HDL Cholesterol 26 Medications Medications Current Medications Acetaminophen (Acetaminophen 325 Mg Tablet) 650 mg PO Q6H PRN PRN Reason: Headache/Pain Mild Scale (1-3) Last Admin: 02/26/23 14:42 Dose: 650 mg Al Hydroxide/Mg Hydroxide (Magnesium Hydrox/Alum Hydrox 30 Ml Oral.Susp) 30 ml PO Q6H PRN PRN Reason: Heartburn/Nausea Amlodipine Besylate (Amlodipine Besylate 5 Mg Tablet) 5 mg PO ONCE ONE; Protocol Stop: 02/27/23 21:01 Amlodipine Besylate (Amlodipine Besylate 10 Mg Tablet) 10 mg PO DAILY RAUL; Protocol Clonidine HCl (Clonidine Hcl 0.2 Mg Tablet) 0.2 mg PO Q4H PRN; Protocol PRN Reason: anxiety/restlessness Hydrochlorothiazide (Hydrochlorothiazide 25 Mg Tablet) 25 mg PO DAILY RAUL; Protocol Hydroxyzine HCl (Hydroxyzine Hcl 25 Mg Tablet) 25 mg PO Q6H PRN PRN Reason: Anxiety Last Admin: 02/26/23 11:39 Dose: 25 mg Lisinopril (Lisinopril 10 Mg Tablet) 10 mg PO DAILY RAUL; Protocol Magnesium Hydroxide (Milk Of Magnesia 30 Ml Oral.Susp) 30 ml PO DAILY PRN PRN Reason: Constipation Prazosin HCl (Prazosin Hcl 1 Mg Capsule) 2 mg PO BEDTIME RAUL; Protocol Sertraline HCl (Sertraline Hcl 50 Mg Tablet) 50 mg PO DAILY RAUL Last Admin: 02/26/23 08:16 Dose: 50 mg Trazodone HCl (Trazodone Hcl 50 Mg Tablet) 150 mg PO BEDTIME PRN PRN Reason: Insomnia Last Admin: 02/25/23 20:39 Dose: 150 mg Allergies Allergies Allergy/AdvReac Type Severity Reaction Status Date / Time No Known Allergies Allergy Verified 02/24/23 22:36 Assessment & Plan Assessment & Plan (1) MDD (major depressive disorder), recurrent episode, moderate: Status: Acute Code(s): F33.1 - Major depressive disorder, recurrent, moderate (2) PTSD (post-traumatic stress disorder): Status: Acute Code(s): F43.10 - Post-traumatic stress disorder, unspecified (3) Alcohol use disorder: Status: Acute Code(s): F10.90 - Alcohol use, unspecified, uncomplicated Plan Patient is a 43-year-old male who presents with depression, PTSD and suicidality and the face of substance abuse, going off medication and numerous psychosocial stressors. -patient has been incarcerated for half of his life; struggling to adjust and struggling with both MDD and PTSD symptoms. Patient said it was somewhat of an accident that he started abusing alcohol, not used to having the freedom to drink. Patient wants treatment for mood and also alcoholism. Hospital Course: 02/26 remains depressed however SI remains resolved and patient is hopeful. Continue nightmares and agrees to increase prazosin. Will add antihypertensives (nursing staff checked and confirmed medications); patient shared that only after he was on 3 medications plus clonidine did his blood pressure head towards normal and that hypertension runs in his family.; continue titrating Zoloft Plan: CV Q 15 minute checks Zoloft 50 mg; will titrate back to home dose of 100 mg Increase to prazosin to mg q.h.s. for nightmares Continue trazodone 150 mg q.h.s. Increase clonidine to 0.2 mg Q 4 p.r.n. 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
[2023-02-26 18:00] VITALS: BP 122/78; PULSE 86; RESP 16; TEMP 36.6; O2SAT 97
[2023-02-26] MEDS: Prazosin HCL 1 MG CAPSULE 2 MG PO (20:33)
[2023-02-26] MEDS: cephALEXin 500 MG CAPSULE PO (20:33)
[2023-02-26] MEDS: traZODone HCL 50 MG TABLET 150 MG PO (21:36)
[2023-02-27 09:30] VITALS: BP 140/73; PULSE 96; RESP 14; TEMP 36.9
[2023-02-27] MEDS: hydroCHLOROthiazide 25 MG TABLET PO (09:30)
[2023-02-27] MEDS: lisinopriL 10 MG TABLET PO (09:30)
[2023-02-27] MEDS: cephALEXin 500 MG CAPSULE PO ×3 (09:30→19:25)
[2023-02-27] MEDS: Sertraline HCL 50 MG TABLET PO (09:30)
[2023-02-27] MEDS: cloNIDine HCL 0.2 MG TABLET PO ×2 (09:33→15:34)
--- NOTE | 2023-02-27 10:46 | HO.PSYCHPN ---
Subjective Subjective Date of Service: 02/27/23 Reason For Visit: Unspecified Depressive D/O, Adjustment D/O unspeci Subjective Notes: Conditional Voluntary Healthcare Proxy: No Guardianship: No Medical Problems Affecting Mental Status: No Interim History: Patient was seen and discussed in rounds today. Records and plans were reviewed. He has been social and engaged. He is compliant with treatment. He is working towards a substance abuse treatment program, [facility]. Eating and sleeping well. No complaints. No changes were made today Medication Compliance: Yes Side effects from medications: No Review of Systems Review of Systems Yes all other systems are reviewed and are negative Mental Status Exam Mental Status Exam Narrative: In today's visit he is alert, oriented and pleasant. Normal speech. Good eye contact. Appropriate affect. No acute signs of psychosis. No SI. Cognitively intact. Judgment is intact Diagnostics Vital Signs (24Hr): Vital Signs - 24 hr 02/26/23 14:46 02/26/23 18:00 02/27/23 09:30 Temperature 97.8 F 98.4 F Pulse Rate 80 86 96 Respiratory Rate 16 14 Blood Pressure 156/98 H 122/78 140/73 H Pulse Oximetry 98 97 Oxygen Delivery Method Room Air Room Air BMI result Body Mass Index 27.2 Labs 02/25/23 08:00 Medications Medications Current Medications Acetaminophen (Acetaminophen 325 Mg Tablet) 650 mg PO Q6H PRN PRN Reason: Headache/Pain Mild Scale (1-3) Last Admin: 02/26/23 20:32 Dose: 650 mg Al Hydroxide/Mg Hydroxide (Magnesium Hydrox/Alum Hydrox 30 Ml Oral.Susp) 30 ml PO Q6H PRN PRN Reason: Heartburn/Nausea Amlodipine Besylate (Amlodipine Besylate 5 Mg Tablet) 5 mg PO ONCE ONE; Protocol Stop: 02/27/23 21:01 Amlodipine Besylate (Amlodipine Besylate 10 Mg Tablet) 10 mg PO DAILY [facility]; Protocol Cephalexin HCl (Cephalexin 500 Mg Capsule) 500 mg PO TID RAUL Last Admin: 02/27/23 09:30 Dose: 500 mg Clonidine HCl (Clonidine Hcl 0.2 Mg Tablet) 0.2 mg PO Q4H PRN; Protocol PRN Reason: anxiety/restlessness Last Admin: 02/27/23 09:33 Dose: 0.2 mg Hydrochlorothiazide (Hydrochlorothiazide 25 Mg Tablet) 25 mg PO DAILY RAUL; Protocol Last Admin: 02/27/23 09:30 Dose: 25 mg Hydroxyzine HCl (Hydroxyzine Hcl 25 Mg Tablet) 25 mg PO Q6H PRN PRN Reason: Anxiety Last Admin: 02/26/23 17:43 Dose: 25 mg Lisinopril (Lisinopril 10 Mg Tablet) 10 mg PO DAILY RAUL; Protocol Last Admin: 02/27/23 09:30 Dose: 10 mg Magnesium Hydroxide (Milk Of Magnesia 30 Ml Oral.Susp) 30 ml PO DAILY PRN PRN Reason: Constipation Prazosin HCl (Prazosin Hcl 1 Mg Capsule) 2 mg PO BEDTIME RAUL; Protocol Last Admin: 02/26/23 20:33 Dose: 2 mg Sertraline HCl (Sertraline Hcl 50 Mg Tablet) 50 mg PO DAILY RAUL Stop: 02/28/23 23:00 Last Admin: 02/27/23 09:30 Dose: 50 mg Sertraline HCl (Sertraline Hcl 25 Mg Tablet) 75 mg PO DAILY RAUL Trazodone HCl (Trazodone Hcl 50 Mg Tablet) 150 mg PO BEDTIME PRN PRN Reason: Insomnia Last Admin: 02/26/23 21:36 Dose: 150 mg Allergies Allergies Allergy/AdvReac Type Severity Reaction Status Date / Time No Known Allergies Allergy Verified 02/24/23 22:36 Assessment & Plan Assessment & Plan (1) MDD (major depressive disorder), recurrent episode, moderate: Status: Acute Code(s): F33.1 - Major depressive disorder, recurrent, moderate (2) PTSD (post-traumatic stress disorder): Status: Acute Code(s): F43.10 - Post-traumatic stress disorder, unspecified (3) Alcohol use disorder: Status: Acute Code(s): F10.90 - Alcohol use, unspecified, uncomplicated Plan Patient is a 43-year-old male who presents with depression, PTSD and suicidality and the face of substance abuse, going off medication and numerous psychosocial stressors. -patient has been incarcerated for half of his life; struggling to adjust and struggling with both MDD and PTSD symptoms. Patient said it was somewhat of an accident that he started abusing alcohol, not used to having the freedom to drink. Patient wants treatment for mood and also alcoholism. Hospital Course: 02/26 remains depressed however SI remains resolved and patient is hopeful. Continue nightmares and agrees to increase prazosin. Will add antihypertensives (nursing staff checked and confirmed medications); patient shared that only after he was on 3 medications plus clonidine did his blood pressure head towards normal and that hypertension runs in his family.; continue titrating Zoloft 02/27: Continue current regimen and plans. Tolerating Zoloft. Plan: CV Q 15 minute checks Zoloft 50 mg; will titrate back to home dose of 100 mg Increase to prazosin to mg q.h.s. for nightmares Continue trazodone 150 mg q.h.s. Increase clonidine to 0.2 mg Q 4 p.r.n. for anxiety Start lisinopril 10 mg daily; patient used to be on 40 mg Will restart amlodipine 10 mg daily Will restart hydrochlorothiazide 25 mg daily Patient is interested in CSS program/addictions recovery specialist Reason for continued inpatient stay Substantial Risk for: med/psych decompensation Time Spent With Patient Time: Total time managing care of this patient today ____ minutes.
[2023-02-27 15:30] VITALS: BP 129/75; PULSE 91; RESP 14
[2023-02-27 18:00] VITALS: BP 122/72; PULSE 84; RESP 16; TEMP 36.4; O2SAT 98
[2023-02-27] MEDS: amLODIPine Besylate 5 MG TABLET PO (19:25)
[2023-02-27] MEDS: Prazosin HCL 1 MG CAPSULE 2 MG PO (19:25)
[2023-02-28 09:30] VITALS: BP 118/76; PULSE 88; RESP 14; TEMP 37.2; O2SAT 99
[2023-02-28] MEDS: hydroCHLOROthiazide 25 MG TABLET PO (09:33)
[2023-02-28] MEDS: Sertraline HCL 50 MG TABLET PO (09:33)
[2023-02-28] MEDS: cephALEXin 500 MG CAPSULE PO ×3 (09:33→19:43)
[2023-02-28] MEDS: amLODIPine Besylate 10 MG TABLET PO (09:33)
[2023-02-28] MEDS: lisinopriL 10 MG TABLET PO (09:33)
--- NOTE | 2023-02-28 09:48 | HO.PSYCHPN ---
Subjective Subjective Date of Service: 02/28/23 Reason For Visit: Unspecified Depressive D/O, Adjustment D/O unspeci Subjective Notes: Conditional Voluntary Healthcare Proxy: No Guardianship: No Medical Problems Affecting Mental Status: No Interim History: Patient was seen and discussed in rounds today. Records and plans were reviewed. He is doing fairly well but continues to endorse some anxiety. He is still somewhat guarded. Looking forward to finding a CSS bed. Some episodes of irritability and feeling tense. He states that he continues to have a lot of nightmares and prazosin has not been sufficiently effective. I will raise his dose to 4 mg q.h.s.. No complaints or side effects. Medication Compliance: Yes Side effects from medications: No Review of Systems Review of Systems Nightmares Yes all other systems are reviewed and are negative Mental Status Exam Mental Status Exam Narrative: In today's visit he is alert, oriented and pleasant. Normal speech. Good eye contact. Appropriate affect. No acute signs of psychosis. No SI. Cognitively intact. Judgment is intact Diagnostics Vital Signs (24Hr): Vital Signs - 24 hr 02/27/23 15:30 02/27/23 18:00 02/28/23 09:30 Temperature 97.6 F 98.9 F Pulse Rate 91 84 88 Respiratory Rate 14 16 14 Blood Pressure 129/75 122/72 118/76 Pulse Oximetry 98 99 Oxygen Delivery Method Room Air Room Air BMI result Body Mass Index 27.2 Labs 02/25/23 08:00 Medications Medications Current Medications Acetaminophen (Acetaminophen 325 Mg Tablet) 650 mg PO Q6H PRN PRN Reason: Headache/Pain Mild Scale (1-3) Last Admin: 02/26/23 20:32 Dose: 650 mg Al Hydroxide/Mg Hydroxide (Magnesium Hydrox/Alum Hydrox 30 Ml Oral.Susp) 30 ml PO Q6H PRN PRN Reason: Heartburn/Nausea Amlodipine Besylate (Amlodipine Besylate 10 Mg Tablet) 10 mg PO DAILY RAUL; Protocol Last Admin: 02/28/23 09:33 Dose: 10 mg Cephalexin HCl (Cephalexin 500 Mg Capsule) 500 mg PO TID RAUL Last Admin: 02/28/23 09:33 Dose: 500 mg Clonidine HCl (Clonidine Hcl 0.2 Mg Tablet) 0.2 mg PO Q4H PRN; Protocol PRN Reason: anxiety/restlessness Last Admin: 02/27/23 15:34 Dose: 0.2 mg Hydrochlorothiazide (Hydrochlorothiazide 25 Mg Tablet) 25 mg PO DAILY RAUL; Protocol Last Admin: 02/28/23 09:33 Dose: 25 mg Hydroxyzine HCl (Hydroxyzine Hcl 25 Mg Tablet) 25 mg PO Q6H PRN PRN Reason: Anxiety Last Admin: 02/26/23 17:43 Dose: 25 mg Lisinopril (Lisinopril 10 Mg Tablet) 10 mg PO DAILY RAUL; Protocol Last Admin: 02/28/23 09:33 Dose: 10 mg Magnesium Hydroxide (Milk Of Magnesia 30 Ml Oral.Susp) 30 ml PO DAILY PRN PRN Reason: Constipation Prazosin HCl (Prazosin Hcl 1 Mg Capsule) 2 mg PO BEDTIME RAUL; Protocol Last Admin: 02/27/23 19:25 Dose: 2 mg Sertraline HCl (Sertraline Hcl 50 Mg Tablet) 50 mg PO DAILY RAUL Stop: 02/28/23 23:00 Last Admin: 02/28/23 09:33 Dose: 50 mg Sertraline HCl (Sertraline Hcl 25 Mg Tablet) 75 mg PO DAILY RAUL Trazodone HCl (Trazodone Hcl 50 Mg Tablet) 150 mg PO BEDTIME PRN PRN Reason: Insomnia Last Admin: 02/26/23 21:36 Dose: 150 mg Allergies Allergies Allergy/AdvReac Type Severity Reaction Status Date / Time No Known Allergies Allergy Verified 02/24/23 22:36 Assessment & Plan Assessment & Plan (1) MDD (major depressive disorder), recurrent episode, moderate: Status: Acute Code(s): F33.1 - Major depressive disorder, recurrent, moderate (2) PTSD (post-traumatic stress disorder): Status: Acute Code(s): F43.10 - Post-traumatic stress disorder, unspecified (3) Alcohol use disorder: Status: Acute Code(s): F10.90 - Alcohol use, unspecified, uncomplicated Plan Patient is a 43-year-old male who presents with depression, PTSD and suicidality and the face of substance abuse, going off medication and numerous psychosocial stressors. -patient has been incarcerated for half of his life; struggling to adjust and struggling with both MDD and PTSD symptoms. Patient said it was somewhat of an accident that he started abusing alcohol, not used to having the freedom to drink. Patient wants treatment for mood and also alcoholism. Hospital Course: 02/26 remains depressed however SI remains resolved and patient is hopeful. Continue nightmares and agrees to increase prazosin. Will add antihypertensives (nursing staff checked and confirmed medications); patient shared that only after he was on 3 medications plus clonidine did his blood pressure head towards normal and that hypertension runs in his family.; continue titrating Zoloft 02/27: Continue current regimen and plans. Tolerating Zoloft. 02/28: Continue current regimen and plans. Increase prazosin to 4 mg Plan: CV Q 15 minute checks Zoloft 50 mg; will titrate back to home dose of 100 mg Increase to prazosin to mg q.h.s. for nightmares Continue trazodone 150 mg q.h.s. Increase clonidine to 0.2 mg Q 4 p.r.n. for anxiety Start lisinopril 10 mg daily; patient used to be on 40 mg Will restart amlodipine 10 mg daily Will restart hydrochlorothiazide 25 mg daily Patient is interested in CSS program/call or contact centre coach Reason for continued inpatient stay Substantial Risk for: med/psych decompensation Time Spent With Patient Time: Total time managing care of this patient today ____ minutes.
[2023-02-28] MEDS: cloNIDine HCL 0.2 MG TABLET PO (16:55)
[2023-02-28 18:00] VITALS: BP 126/82; PULSE 74; RESP 16; TEMP 36.3; O2SAT 99
[2023-02-28] MEDS: hydrOXYzine HCL 25 MG TABLET PO (19:03)
[2023-02-28] MEDS: traZODone HCL 50 MG TABLET 150 MG PO (22:04)
[2023-03-01 09:01] VITALS: BP 137/73; PULSE 83; RESP 16; TEMP 37.1; O2SAT 98
[2023-03-01] MEDS: lisinopriL 10 MG TABLET PO (09:03)
[2023-03-01] MEDS: Sertraline HCL 25 MG TABLET 75 MG PO (09:03)
[2023-03-01] MEDS: amLODIPine Besylate 10 MG TABLET PO (09:03)
[2023-03-01] MEDS: cephALEXin 500 MG CAPSULE PO ×3 (09:03→21:15)
[2023-03-01] MEDS: hydroCHLOROthiazide 25 MG TABLET PO (09:03)
--- NOTE | 2023-03-01 10:26 | P.PNPSI_ITS ---
Subjective Subjective Date of Service: 03/01/23 Reason For Visit: Unspecified Depressive D/O, Adjustment D/O unspeci Interim History: Met with patient; discussed with team Patient feeling anxious and depressed today. Talked about how he was triggered over the weekend, feeling that he will for ever be judged due to his past history. 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 He was able to articulate how history of trauma factors into self-deprecating and catastrophizing thoughts. Patient shared how he was able to cope in intermediate, focusing on very short term day-to-day goals and how he is so surprised that after getting through that, now facing homelessness can be so De stabilizing. Mental Status Exam Mental Status Exam Narrative: Pt is alert and oriented; behavior is cooperative, polite and calm;patient is not in distress; dressed in casual attire, well groomed; mood is described as anxious and affect congruent; eye contact appropriate; Speech regular rate, volume and prosody; no psychomotor retardation present; thought process is organized and goal directed; Thought content is on dealing with anxiety, negative thinking, getting stable, treatment; otherwise pertinent to relevant topics and without any delusional content, paranoid ideations or grandiosity; denies any SI/HI. There is no evidence of perceptual disturbance. Patients insight and judgment are intact. Diagnostics Vital Signs (24Hr): Vital Signs - 24 hr 02/28/23 18:00 03/01/23 09:01 Temperature 97.4 F 98.7 F Pulse Rate 74 83 Respiratory Rate 16 16 Blood Pressure 126/82 137/73 Pulse Oximetry 99 98 Oxygen Delivery Method Room Air Room Air BMI result Body Mass Index 27.2 Labs 02/25/23 08:00 Medications Medications Current Medications Acetaminophen (Acetaminophen 325 Mg Tablet) 650 mg PO Q6H PRN PRN Reason: Headache/Pain Mild Scale (1-3) Last Admin: 02/26/23 20:32 Dose: 650 mg Al Hydroxide/Mg Hydroxide (Magnesium Hydrox/Alum Hydrox 30 Ml Oral.Susp) 30 ml PO Q6H PRN PRN Reason: Heartburn/Nausea Amlodipine Besylate (Amlodipine Besylate 10 Mg Tablet) 10 mg PO DAILY RAUL; Protocol Last Admin: 03/01/23 09:03 Dose: 10 mg Cephalexin HCl (Cephalexin 500 Mg Capsule) 500 mg PO TID [facility] Last Admin: 03/01/23 09:03 Dose: 500 mg Clonidine HCl (Clonidine Hcl 0.2 Mg Tablet) 0.2 mg PO Q4H PRN; Protocol PRN Reason: anxiety/restlessness Last Admin: 02/28/23 16:55 Dose: 0.2 mg Hydrochlorothiazide (Hydrochlorothiazide 25 Mg Tablet) 25 mg PO DAILY RAUL; Protocol Last Admin: 03/01/23 09:03 Dose: 25 mg Hydroxyzine HCl (Hydroxyzine Hcl 25 Mg Tablet) 25 mg PO Q6H PRN PRN Reason: Anxiety Last Admin: 02/28/23 19:03 Dose: 25 mg Lisinopril (Lisinopril 10 Mg Tablet) 10 mg PO DAILY RAUL; Protocol Last Admin: 03/01/23 09:03 Dose: 10 mg Magnesium Hydroxide (Milk Of Magnesia 30 Ml Oral.Susp) 30 ml PO DAILY PRN PRN Reason: Constipation Prazosin HCl (Prazosin Hcl 1 Mg Capsule) 4 mg PO BEDTIME RAUL; Protocol Last Admin: 02/28/23 20:40 Dose: Not Given Sertraline HCl (Sertraline Hcl 25 Mg Tablet) 75 mg PO DAILY RAUL Last Admin: 03/01/23 09:03 Dose: 75 mg Trazodone HCl (Trazodone Hcl 50 Mg Tablet) 150 mg PO BEDTIME PRN PRN Reason: Insomnia Last Admin: 02/28/23 22:04 Dose: 150 mg Allergies Allergies Allergy/AdvReac Type Severity Reaction Status Date / Time No Known Allergies Allergy Verified 02/24/23 22:36 Assessment & Plan Assessment & Plan (1) MDD (major depressive disorder), recurrent episode, moderate: Status: Acute Code(s): F33.1 - Major depressive disorder, recurrent, moderate (2) PTSD (post-traumatic stress disorder): Status: Acute Code(s): F43.10 - Post-traumatic stress disorder, unspecified (3) Alcohol use disorder: Status: Acute Code(s): F10.90 - Alcohol use, unspecified, uncomplicated Plan Patient is a 43-year-old male who presents with depression, PTSD and suicidality and the face of substance abuse, going off medication and numerous psychosocial stressors. -patient has been incarcerated for half of his life; struggling to adjust and struggling with both MDD and PTSD symptoms. Patient said it was somewhat of an accident that he started abusing alcohol, not used to having the freedom to drink. Patient wants treatment for mood and also alcoholism. Hospital Course: 02/26 remains depressed however SI remains resolved and patient is hopeful. Continue nightmares and agrees to increase prazosin. Will add antihypertensives (nursing staff checked and confirmed medications); patient shared that only after he was on 3 medications plus clonidine did his blood pressure head towards normal and that hypertension runs in his family.; continue titrating Zoloft 02/27: Continue current regimen and plans. Tolerating Zoloft. 02/28: Continue current regimen and plans. Increase prazosin to 4 mg 03/01: CBT exercise with patient helpful; will continue to engage in this type of therapy; will likely continue to titrate Zoloft Plan: CV Q 15 minute checks Continue Zoloft 100 mg; will likely keep titrating Continue prazosin to mg q.h.s. for nightmares Continue trazodone 150 mg q.h.s. Continue clonidine to 0.2 mg Q 4 p.r.n. for anxiety Continue t lisinopril 10 mg daily; patient used to be on 40 mg Continue amlodipine 10 mg daily Continue hydrochlorothiazide 25 mg daily Patient is interested in CSS program/transformation coach Patient educated on: medication risk/benefits, substance abuse and therapeutic strategies Informed Consent: understands Reason for continued inpatient stay Substantial Risk for: rapid decompensation Time Spent With Patient Time: Total time managing care of this patient today ____ minutes.
[2023-03-01 12:56] VITALS: BP 118/69; PULSE 78
[2023-03-01] MEDS: hydrOXYzine HCL 25 MG TABLET PO (13:02)
[2023-03-01] MEDS: cloNIDine HCL 0.2 MG TABLET PO (13:02)
[2023-03-01 16:30] VITALS: BP 109/56; PULSE 74; TEMP 35.9; O2SAT 98
[2023-03-01] MEDS: LORazepam 1 MG TABLET PO (21:23)
[2023-03-01] MEDS: traZODone HCL 50 MG TABLET 150 MG PO (21:36)
--- NOTE | 2023-03-01 23:51 | PC.NURSE ---
AROUND 2044 PATIENT WAS STANDING IN THE HALLWAY AND APPEARED ANXIOUS. T/W APPROACHED PATIENT AND INITIALLY HE SAID THERE'S NOTHING ANYONE CAN DO FOR ME NOW. HE WAS NOTED TO HAVE TEARS IN HIS EYES AND LOOKED VERY SAD. T/W CONTACTED THE POULTRY PACKER PROVIDER AND RECEIVED AN ORDER FOR ATIVAN 1 MG X 1 NOW. PATIENT WAS RECEPTIVE TO TAKING THE PRN NOW DOSE AND LATER SAID HE FELT MUCH BETTER.
[2023-03-02 08:26] VITALS: BP 123/65; PULSE 85; RESP 16; TEMP 36.9; O2SAT 97
[2023-03-02] MEDS: amLODIPine Besylate 10 MG TABLET PO (08:37)
[2023-03-02] MEDS: Sertraline HCL 100 MG TABLET PO (08:37)
[2023-03-02] MEDS: lisinopriL 10 MG TABLET PO (08:37)
[2023-03-02] MEDS: hydroCHLOROthiazide 25 MG TABLET PO (08:38)
[2023-03-02] MEDS: cephALEXin 500 MG CAPSULE PO ×3 (08:38→21:57)
[2023-03-02] MEDS: hydrOXYzine HCL 25 MG TABLET PO ×2 (08:38→17:20)
--- NOTE | 2023-03-02 10:14 | HO.PSYCHPN ---
Subjective Subjective Date of Service: 03/02/23 Reason For Visit: Unspecified Depressive D/O, Adjustment D/O unspeci Interim History: Met with patient; discussed with team Engaged in CBT exercise; patient discussed its struggling conversation with ex girlfriend yesterday and how it was upsetting, triggered automatic thoughts but how he was also able to overcome it. Agrees to increased Zoloft. Says prazosin may be causing problematic dreams and has been refusing it. Mental Status Exam Mental Status Exam Narrative: Pt is alert and oriented; behavior is cooperative, polite and calm;patient is not in distress; dressed in casual attire, well groomed; mood is described as okay and affect congruent; eye contact appropriate; Speech regular rate, volume and prosody; no psychomotor retardation present; thought process is organized and goal directed; Thought content is on dealing with anxiety, negative thinking, getting stable, treatment; otherwise pertinent to relevant topics and without any delusional content, paranoid ideations or grandiosity; denies any SI/HI. There is no evidence of perceptual disturbance. Patients insight and judgment are intact. Diagnostics Vital Signs (24Hr): Vital Signs - 24 hr 03/01/23 12:56 03/01/23 16:30 03/02/23 08:26 Temperature 96.6 F L 98.5 F Pulse Rate 78 74 85 Respiratory Rate 16 Blood Pressure 118/69 109/56 L 123/65 Pulse Oximetry 98 97 Oxygen Delivery Method Room Air Room Air BMI result Body Mass Index 27.2 Labs 02/25/23 08:00 Medications Medications Current Medications Acetaminophen (Acetaminophen 325 Mg Tablet) 650 mg PO Q6H PRN PRN Reason: Headache/Pain Mild Scale (1-3) Last Admin: 02/26/23 20:32 Dose: 650 mg Al Hydroxide/Mg Hydroxide (Magnesium Hydrox/Alum Hydrox 30 Ml Oral.Susp) 30 ml PO Q6H PRN PRN Reason: Heartburn/Nausea Amlodipine Besylate (Amlodipine Besylate 10 Mg Tablet) 10 mg PO DAILY [facility]; Protocol Last Admin: 03/02/23 08:37 Dose: 10 mg Cephalexin HCl (Cephalexin 500 Mg Capsule) 500 mg PO TID [facility] Last Admin: 03/02/23 08:38 Dose: 500 mg Clonidine HCl (Clonidine Hcl 0.2 Mg Tablet) 0.2 mg PO Q4H PRN; Protocol PRN Reason: anxiety/restlessness Last Admin: 03/01/23 13:02 Dose: 0.2 mg Hydrochlorothiazide (Hydrochlorothiazide 25 Mg Tablet) 25 mg PO DAILY [facility]; Protocol Last Admin: 03/02/23 08:38 Dose: 25 mg Hydroxyzine HCl (Hydroxyzine Hcl 25 Mg Tablet) 25 mg PO Q6H PRN PRN Reason: Anxiety Last Admin: 03/02/23 08:38 Dose: 25 mg Lisinopril (Lisinopril 10 Mg Tablet) 10 mg PO DAILY [facility]; Protocol Last Admin: 03/02/23 08:37 Dose: 10 mg Magnesium Hydroxide (Milk Of Magnesia 30 Ml Oral.Susp) 30 ml PO DAILY PRN PRN Reason: Constipation Prazosin HCl (Prazosin Hcl 1 Mg Capsule) 4 mg PO BEDTIME [facility]; Protocol Last Admin: 03/01/23 21:35 Dose: Not Given Sertraline HCl (Sertraline Hcl 100 Mg Tablet) 100 mg PO DAILY [facility] Last Admin: 03/02/23 08:37 Dose: 100 mg Trazodone HCl (Trazodone Hcl 50 Mg Tablet) 150 mg PO BEDTIME PRN PRN Reason: Insomnia Last Admin: 03/01/23 21:36 Dose: 150 mg Allergies Allergies Allergy/AdvReac Type Severity Reaction Status Date / Time No Known Allergies Allergy Verified 02/24/23 22:36 Assessment & Plan Assessment & Plan (1) MDD (major depressive disorder), recurrent episode, moderate: Status: Acute Code(s): F33.1 - Major depressive disorder, recurrent, moderate (2) PTSD (post-traumatic stress disorder): Status: Acute Code(s): F43.10 - Post-traumatic stress disorder, unspecified (3) Alcohol use disorder: Status: Acute Code(s): F10.90 - Alcohol use, unspecified, uncomplicated Plan Patient is a 43-year-old male who presents with depression, PTSD and suicidality and the face of substance abuse, going off medication and numerous psychosocial stressors. -patient has been incarcerated for half of his life; struggling to adjust and struggling with both MDD and PTSD symptoms. Patient said it was somewhat of an accident that he started abusing alcohol, not used to having the freedom to drink. Patient wants treatment for mood and also alcoholism. Hospital Course: 02/26 remains depressed however SI remains resolved and patient is hopeful. Continue nightmares and agrees to increase prazosin. Will add antihypertensives (nursing staff checked and confirmed medications); patient shared that only after he was on 3 medications plus clonidine did his blood pressure head towards normal and that hypertension runs in his family.; continue titrating Zoloft 02/27: Continue current regimen and plans. Tolerating Zoloft. 02/28: Continue current regimen and plans. Increase prazosin to 4 mg 03/01: CBT exercise with patient helpful; will continue to engage in this type of therapy; will likely continue to titrate Zoloft 03/02 increase Zoloft to 125 mg; DC prazosin; continue CPT exercises which seem to be helping; patient remains engaged in treatment and is stabilizing Plan: CV Q 15 minute checks Increased to Zoloft 125 mg; will likely keep titrating to 150 mg Discontinue prazosin; patient feels like it is actually causing problematic dreams Continue trazodone 150 mg q.h.s. Add melatonin 3 mg to help with onset of sleep Continue clonidine to 0.2 mg Q 4 p.r.n. for anxiety Continue lisinopril 10 mg daily; patient used to be on 40 mg Continue amlodipine 10 mg daily Continue hydrochlorothiazide 25 mg daily Patient is interested in CSS program/academic coach Patient educated on: diagnosis, medication risk/benefits and therapeutic strategies Informed Consent: understands Reason for continued inpatient stay Substantial Risk for: stable for discharge Time Spent With Patient Time: Total time managing care of this patient today ____ minutes.
[2023-03-02 14:28] VITALS: BP 132/81
[2023-03-02] MEDS: cloNIDine HCL 0.2 MG TABLET PO (14:29)
[2023-03-02] MEDS: busPIRone HCl 10 MG TABLET PO (14:29)
[2023-03-02] MEDS: Magnesium Hydrox/Alum Hydrox 30 ML ORAL.SUSP PO (17:20)
[2023-03-02 21:45] VITALS: BP 101/57; PULSE 80; TEMP 36.6; O2SAT 97
[2023-03-02] MEDS: Melatonin 3 MG TABLET PO (21:57)
[2023-03-02] MEDS: traZODone HCL 50 MG TABLET 150 MG PO (22:30)
[2023-03-03 08:45] VITALS: PULSE 85; RESP 18; TEMP 36; O2SAT 98
[2023-03-03] MEDS: amLODIPine Besylate 10 MG TABLET PO (08:46)
[2023-03-03] MEDS: cephALEXin 500 MG CAPSULE PO ×3 (08:46→21:40)
[2023-03-03] MEDS: hydroCHLOROthiazide 25 MG TABLET PO (08:46)
[2023-03-03] MEDS: Sertraline HCL 25 MG TABLET 125 MG PO (08:46)
[2023-03-03] MEDS: lisinopriL 10 MG TABLET PO (08:47)
--- NOTE | 2023-03-03 10:19 | HO.PSYCHPN ---
Subjective Subjective Date of Service: 03/03/23 Reason For Visit: Unspecified Depressive D/O, Adjustment D/O unspeci Interim History: met with patient; discussed in teams pt reports he remains over all much better; while he still get's anxious and has intense feelings he feels much more able to cope with them and that he able to stay safe. Patient is optimistic about sobriety and aftercare. He feels ready for discharge. Mental Status Exam Mental Status Exam Narrative: Pt is alert and oriented; behavior is cooperative, polite and calm;patient is not in distress; dressed in casual attire, well groomed; mood is described as okay and affect congruent; eye contact appropriate; Speech regular rate, volume and prosody; no psychomotor retardation present; thought process is organized and goal directed; Thought content is on dealing with anxiety, negative thinking, getting stable, treatment; otherwise pertinent to relevant topics and without any delusional content, paranoid ideations or grandiosity; denies any SI/HI. There is no evidence of perceptual disturbance. Patients insight and judgment are intact. Diagnostics Vital Signs (24Hr): Vital Signs - 24 hr 03/02/23 14:28 03/02/23 21:45 Temperature 97.8 F Pulse Rate 80 Blood Pressure 132/81 101/57 L Pulse Oximetry 97 Oxygen Delivery Method Room Air BMI result Body Mass Index 27.2 Labs 02/25/23 08:00 Medications Medications Current Medications Acetaminophen (Acetaminophen 325 Mg Tablet) 650 mg PO Q6H PRN PRN Reason: Headache/Pain Mild Scale (1-3) Last Admin: 02/26/23 20:32 Dose: 650 mg Al Hydroxide/Mg Hydroxide (Magnesium Hydrox/Alum Hydrox 30 Ml Oral.Susp) 30 ml PO Q6H PRN PRN Reason: Heartburn/Nausea Last Admin: 03/02/23 17:20 Dose: 30 ml Amlodipine Besylate (Amlodipine Besylate 10 Mg Tablet) 10 mg PO DAILY [facility]; Protocol Last Admin: 03/03/23 08:46 Dose: 10 mg Buspirone HCl (Buspirone Hcl 10 Mg Tablet) 10 mg PO TID PRN PRN Reason: anxiety Last Admin: 03/02/23 14:29 Dose: 10 mg Cephalexin HCl (Cephalexin 500 Mg Capsule) 500 mg PO TID [facility] Last Admin: 03/03/23 08:46 Dose: 500 mg Clonidine HCl (Clonidine Hcl 0.2 Mg Tablet) 0.2 mg PO Q4H PRN; Protocol PRN Reason: anxiety/restlessness Last Admin: 03/02/23 14:29 Dose: 0.2 mg Hydrochlorothiazide (Hydrochlorothiazide 25 Mg Tablet) 25 mg PO DAILY [facility]; Protocol Last Admin: 03/03/23 08:46 Dose: 25 mg Hydroxyzine HCl (Hydroxyzine Hcl 25 Mg Tablet) 25 mg PO Q6H PRN PRN Reason: Anxiety Last Admin: 03/02/23 17:20 Dose: 25 mg Lisinopril (Lisinopril 10 Mg Tablet) 10 mg PO DAILY [facility]; Protocol Last Admin: 03/03/23 08:47 Dose: 10 mg Magnesium Hydroxide (Milk Of Magnesia 30 Ml Oral.Susp) 30 ml PO DAILY PRN PRN Reason: Constipation Melatonin (Melatonin 3 Mg Tablet) 3 mg PO BEDTIME [facility] Last Admin: 03/02/23 21:57 Dose: 3 mg Nicotine (Nicotine 21 Mg Patch.Td24) 21 mg TRANSDERMA DAILY PRN PRN Reason: smoking cessation Sertraline HCl (Sertraline Hcl 25 Mg Tablet) 125 mg PO DAILY [facility] Last Admin: 03/03/23 08:46 Dose: 125 mg Trazodone HCl (Trazodone Hcl 50 Mg Tablet) 150 mg PO BEDTIME [facility] Last Admin: 03/02/23 22:30 Dose: 150 mg Allergies Allergies Allergy/AdvReac Type Severity Reaction Status Date / Time No Known Allergies Allergy Verified 02/24/23 22:36 Assessment & Plan Assessment & Plan (1) MDD (major depressive disorder), recurrent episode, moderate: Status: Acute Code(s): F33.1 - Major depressive disorder, recurrent, moderate (2) PTSD (post-traumatic stress disorder): Status: Acute Code(s): F43.10 - Post-traumatic stress disorder, unspecified (3) Alcohol use disorder: Status: Acute Code(s): F10.90 - Alcohol use, unspecified, uncomplicated Plan Patient is a 43-year-old male who presents with depression, PTSD and suicidality and the face of substance abuse, going off medication and numerous psychosocial stressors. -patient has been incarcerated for half of his life; struggling to adjust and struggling with both MDD and PTSD symptoms. Patient said it was somewhat of an accident that he started abusing alcohol, not used to having the freedom to drink. Patient wants treatment for mood and also alcoholism. Hospital Course: 02/26 remains depressed however SI remains resolved and patient is hopeful. Continue nightmares and agrees to increase prazosin. Will add antihypertensives (nursing staff checked and confirmed medications); patient shared that only after he was on 3 medications plus clonidine did his blood pressure head towards normal and that hypertension runs in his family.; continue titrating Zoloft 02/27: Continue current regimen and plans. Tolerating Zoloft. 02/28: Continue current regimen and plans. Increase prazosin to 4 mg 03/01: CBT exercise with patient helpful; will continue to engage in this type of therapy; will likely continue to titrate Zoloft 03/02 increase Zoloft to 125 mg; DC prazosin; continue CPT exercises which seem to be helping; patient remains engaged in treatment and is stabilizing Plan: CV Q 15 minute checks Increased to Zoloft 125 mg; will likely keep titrating to 150 mg Discontinue prazosin; patient feels like it is actually causing problematic dreams Continue trazodone 150 mg q.h.s. Add melatonin 3 mg to help with onset of sleep Continue clonidine to 0.2 mg Q 4 p.r.n. for anxiety Continue lisinopril 10 mg daily; patient used to be on 40 mg Continue amlodipine 10 mg daily Continue hydrochlorothiazide 25 mg daily Patient is interested in CSS program/volleyball assistant coach Patient educated on: diagnosis Informed Consent: understands Reason for continued inpatient stay Substantial Risk for: stable for discharge Time Spent With Patient Time: Total time managing care of this patient today ____ minutes.
[2023-03-03] MEDS: Acetaminophen 325 MG TABLET 650 MG PO (16:39)
[2023-03-03] MEDS: cloNIDine HCL 0.2 MG TABLET PO (16:39)
[2023-03-03] MEDS: busPIRone HCl 10 MG TABLET PO (16:39)
[2023-03-03 16:42] LABS: COVID-19 Test Negative (Negative); IDNOW Serial# 9DB6401D
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
[2023-03-03] MEDS: QUEtiapine Fumarate 25 MG TABLET 75 MG PO (17:32)
[2023-03-03 18:00] VITALS: BP 102/64; PULSE 82; TEMP 36.6; O2SAT 98
[2023-03-03] MEDS: Melatonin 3 MG TABLET PO (21:40)
[2023-03-03] MEDS: traZODone HCL 50 MG TABLET 150 MG PO (21:40)
[2023-03-04] MEDS: Naloxone HCl Nasal TAKE HOME 4 MG SPRAY NOSTRILALT (08:08)
[2023-03-04] MEDS: Sertraline HCL 25 MG TABLET 125 MG PO (08:09)
[2023-03-04] MEDS: cephALEXin 500 MG CAPSULE PO (08:09)
[2023-03-04] MEDS: amLODIPine Besylate 10 MG TABLET PO (08:09)
[2023-03-04] MEDS: lisinopriL 10 MG TABLET PO (08:09)
[2023-03-04] MEDS: hydroCHLOROthiazide 25 MG TABLET PO (08:09)
[2023-03-04] MEDS: Magnesium Hydrox/Alum Hydrox 30 ML ORAL.SUSP PO (08:13)
[2023-03-04 08:41] VITALS: BP 121/74; PULSE 81; RESP 18; TEMP 37.1; O2SAT 99
== END 2023-03-04 08:32 | disposition home or self-care (01) | DRG 751 ==
PROVIDERS: Psychiatry & Neurology Psychiatry; Admitting Provider Psychiatry & Neurology Psychiatry; Visit Provider Psychiatry & Neurology Psychiatry
DX: F33.1 Major depressive disorder, recurrent, moderate (principal); R45.851 Suicidal ideations; F17.210 Nicotine dependence, cigarettes, uncomplicated; F43.10 Post-traumatic stress disorder, unspecified; S22.31XA Fracture of one rib, right side, initial encounter for closed fracture; W19.XXXA Unspecified fall, initial encounter; Y99.0 Civilian activity done for income or pay; Z71.6 Tobacco abuse counseling; Z20.822 Contact with and (suspected) exposure to COVID-19; Z79.899 Other long term (current) drug therapy
CPT/HCPCS: 36415; 80053; 80061; 87635

== ENCOUNTER 2023-03-06 12:52 | Emergency (ER) | payer MEDICAID, SELFPAY ==
--- NOTE | ~2023-03-06 | US_ITS ---
EXAMINATION: US VENOUS ULTRASOUND WITH DOPPLER LOWER EXTREMITY, BILATERAL CLINICAL INFORMATION: Bilateral lower extremity swelling. COMPARISON: None available. TECHNIQUE: Ultrasound of the deep veins is performed from the hip to the calf with compression sonography and color and pulse Doppler assessment. Spectral analysis with color-flow imaging is performed. FINDINGS: RIGHT: There is normal venous compression and respiratory variation and augmented flow. The visualized common femoral vein, superficial femoral vein, profunda femoral vein, popliteal vein, and the trifurcation region shows no evidence of deep venous thrombosis. There is no significant popliteal fossa cyst. LEFT: There is normal venous compression and respiratory variation and augmented flow. The visualized common femoral vein, superficial femoral vein, profunda femoral vein, popliteal vein, and the trifurcation region shows no evidence of deep venous thrombosis. There is no significant popliteal fossa cyst. If the patient's symptoms persist, followup ultrasound in 5 days 7 days might be of value to exclude proximal propagation from a non-visualized calf vein. US/US venous duplex LE BI IMPRESSION: No DVT demonstrated in the bilateral lower extremity.
--- NOTE | ~2023-03-06 | XR_ITS ---
EXAMINATION: CHEST 1 VIEWS CLINICAL INFORMATION: Bilateral lower extremity swelling. COMPARISON: None. TECHNIQUE: Single view of the chest. FINDINGS: Lungs are clear. No focal consolidation or mass. Normal pulmonary vascularity. No pleural effusion or pneumothorax. Normal cardiomediastinal silhouette. XR/XR chest 1V IMPRESSION: No acute cardiopulmonary findings.
[2023-03-06 13:04] VITALS: BP 124/77; BP 142/84; PULSE 93; PULSE 95; RESP 16; TEMP 36.9; O2SAT 95; O2SAT 98; BMI 26.6
--- NOTE | 2023-03-06 13:34 | ED_ITS ---
HPI - General Adult General Chief complaint: Extremity Problem Stated complaint: BILATERAL LEG EDEMA Time Seen by Provider: 03/06/23 13:13 Source: patient and EMS Mode of arrival: EMS Limitations: no limitations History of Present Illness HPI narrative: 43-year-old male past medical history significant for hypertension presented today with 1 day of bilateral lower extremity swelling. Patient declined any SOB, CP, no recent prolonged immobilization, no recent travel, no trauma to her lower extremities, patient confirmed he has been eating and drinking normally. Related Data Previous Rx's Medication Instructions Recorded amlodipine 10 mg tablet 10 mg PO DAILY 30 days #30 tabs 03/03/23 clonidine HCl 0.2 mg tablet 0.2 mg PO Q4H PRN 03/03/23 Anxiety/Restlessness 30 days #90 tabs hydrochlorothiazide 25 mg tablet 25 mg PO DAILY 30 days #30 tabs 03/03/23 hydroxyzine HCl 25 mg tablet 25 mg PO Q6H PRN Anxiety 30 days 03/03/23 #90 tabs lisinopril 10 mg tablet 10 mg PO DAILY 30 days #30 tabs 03/03/23 melatonin 3 mg tablet 3 mg PO BEDTIME PRN sleep 30 days 03/03/23 #30 tabs quetiapine 25 mg tablet 75 mg PO BID PRN anxiety 30 days 03/03/23 #180 tabs sertraline 100 mg tablet (Zoloft) 100 mg PO DAILY 30 days #30 tabs 03/03/23 trazodone 50 mg tablet 150 mg PO BEDTIME 30 days #90 tabs 03/03/23 Allergies Allergy/AdvReac Type Severity Reaction Status Date / Time No Known Allergies Allergy Verified 02/24/23 22:36 Review of Systems 2 Review of Systems: All other systems are reviewed and are negative Constitutional: Reports as per HPI and Reports no additional constitutional complaints Eyes: Reports as per HPI and Reports no additional eye complaints Reports system reviewed and no additional complaints, except as documented Cardiovascular: Reports as per HPI and Reports no additional cardiovascular complaints Respiratory: Reports as per HPI and Reports no additional respiratory complaints Gastrointestinal: Reports as per HPI and Reports no additional gastrointestinal complaints Genitourinary: Reports no additional female genitourinary complaints Musculoskeletal: Reports no additional musculoskeletal complaints Skin/Breast: Reports system reviewed and no additional complaints, except as docu Psychiatric: Reports no additional psychiatric complaints Endocrine: Reports no additional endocrine complaints Hematologic/Lymphatic: Reports no additional hematologic/lymphatic complaints Allergic/Immunologic: Reports no additional allergic/immunologic complaints Reports system reviewed and no additional complaints, except as documented and Reports Abnormal speech present [facility] Past Medical History Medical History Alcohol use disorder MDD (major depressive disorder), recurrent episode, moderate PTSD (post-traumatic stress disorder) Social History Social History Household Members: Significant Other Housing: Apartment Do you presently have visiting nurse or other home services: No Alcohol intake: current Patient Tobacco Use Status: Current everyday Tobacco user Tobacco use type: Cigarette Cigarette Packs Per Day: 1 Cigarettes Per Day: 20.0 Years Smoked: 25 Smoked in Last 30 Days: Yes e-Cigarette/Vaping Use: Never Used Second Hand Smoke Exposure: Yes Use of substances other than those prescribed or required for medical reasons: Yes Substance Use Type: Crack/Cocaine and Marijuana Advance Directives: No Advance Directives Information Provided: Yes Sexual orientation: Straight/Heterosexual Physical Exam ED Vital Signs: Vital Signs - 24 hr 03/06/23 13:04 03/06/23 14:54 Temperature 98.5 F 98.4 F Pulse Rate 93 86 Respiratory Rate 16 18 Blood Pressure 124/77 115/75 Pulse Oximetry 95 98 Oxygen Delivery Method Room Air Room Air BMI result Body Mass Index 26.6 Vital signs have been reviewed as appeared to be correct. Blood pressure normal. Heart rate normal. Respiration rate normal. Temperature normal. Oxygen saturation normal. Appearance: Alert. Oriented X3. No acute distress. Head: Normal external exam. Normocephalic. Atraumatic. No Staples signs noted. No raccoon eyes noted Eyes: PERRLA. EOMI. Conjunctiva and sclera normal. Eyelids normal. ENT: TM's Normal. Pharynx normal. Uvula midline. Moist mucous membranes. No trismus noted. No drooling noted. No muffled voice noted. Neck: Normal inspection. Neck supple. FROM. No adenopathy. Thyroid Normal. No meningeal signs. No neck mass noted. CVS: Normal heart rate and rhythm. Heart sound normal. No murmurs noted. Pulses normal throughout. Respiratory: No respiratory distress. Painless inspiration. Breath sounds normal. No wheezes/rales/rhonchi noted. Chest nontender. No accessory muscle usage noted or decreased air movement noted. Abdomen: Soft and nontender. Bowel sounds normal in all 4 quadrants. No distention noted. No organomegaly noted. No visible injury noted. Back: No CVA tenderness. Full range of motion noted. Skin: Skin warm and dry. Normal skin color. Normal skin turgor. No rashes/lesions/lacerations noted. Extremities: +1 lower extremity edema. Extremities exhibit normal range of motion. Extremities nontender. Neuro: Oriented X 3. Cranial nerve exam: II-XII are grossly intact No motor deficit. No sensory deficit. Reflexes normal. Course Course Course Narrative: 43-year-old male with mild bilateral lower extremity edema, otherwise no CP, no SOB, has unremarkable workup in the emergency department, will reassure the patient and discharge. Medical Decision Making Differential Diagnosis Differential Diagnoses: The differential diagnosis associated with the presentation includes (CHF, acute liver disease, acute kidney disease, DVT, rhabdomyolysis.) Lab Data MDM Lab Attestation statement: I reviewed the patient's lab results. 03/06/23 13:45 03/06/23 13:45 Labs: Lab Results 03/06/23 03/06/23 03/06/23 Range/Units 13:45 13:45 13:45 WBC 13.5 H (4.8-10.8) X10*3/uL RBC 5.17 (4.60-5.80) X10*6/uL Hgb 14.9 (14.0-18.0) g/dl Hct 44.4 (42.0-52.0) % MCV 85.9 (80.0-98.0) fL MCH 28.8 (27.0-33.0) pg MCHC 33.6 (31.0-36.0) g/dl RDW 12.5 (11.0-16.0) % Plt Count 298 (160-400) X10*3/uL MPV 8.8 L (9.4-12.4) fL Immature Gran % (Auto) 1.9 H (0.0-0.4) % Neut % (Auto) 74.0 H (45-73) % Lymph % (Auto) 12.0 L (20-40) % [place] % (Auto) 8.3 (2-11) % Eos % (Auto) 3.3 (0-4) % Baso % (Auto) 0.5 (0-2) % Lymph # (Auto) 1.6 (1.2-4.9) X10*3/uL [place] # (Auto) 1.1 (0.1-1.2) X10*3/uL Eos # (Auto) 0.4 (0.0-0.4) X10*3/uL Baso # (Auto) 0.1 (0.0-0.2) X10*3/uL Abs Immat Gran (auto) 0.26 H (0.00-0.03) X10*3/uL Absolute Neuts (auto) 10.0 H (2.0-8.3) x10*3/uL Absolute Nucleated RBC 0.000 (0.0-0.012) X10*3/uL Nucleated RBC % (auto) 0.0 (0.0-0.2) /100WBC Sodium 137 (135-145) mmol/L Potassium 4.4 (3.3-5.1) mmol/L Chloride 101 (96-108) mmol/L Carbon Dioxide 27 (22-29) mmol/L Anion Gap 13 (12-20) BUN 18 H (9-16) mg/dL Creatinine 0.85 (0.5-1.4) mg/dL Estim Creat Clear Calc 106.9 Estimated GFR > 60 Random Glucose 102 (60-115) mg/dL Calcium 9.3 (8.4-10.2) mg/dL Total Bilirubin 0.2 (0.0-1.0) mg/dL Direct Bilirubin < 0.2 (0.0-0.5) mg/dL AST 31 (5-37) U/L ALT 52 H (0-40) U/L Alkaline Phosphatase 105 (39-117) U/L Total Creatine Kinase 139 (38-174) U/L Troponin I High Sens < 2.7 (<3.5-35.0) ng/L B-Natriuretic Peptide (<100) pg/mL Total Protein 6.7 (6.5-8.0) g/dL Albumin 4.0 (3.5-5.0) g/dL Lipase 33 (8-78) U/L Urine Color Urine Appearance Urine pH (5.0-9.0) Ur Specific [place] (1.005-1.025) Urine Protein (Neg-Trace) mg/dL Urine Glucose (UA) (Negative) mg/dL Urine Ketones (Negative) mg/dL Urine Blood (Negative) Urine Nitrite (Negative) Ur Leukocyte Esterase (Negative) Influenza Type A (PCR) (Negative) Influenza Type B (PCR) (Negative) RSV RNA Qual (PCR) (Negative) SARS-CoV-2 RNA (RT-PCR) (Negative) 03/06/23 03/06/23 03/06/23 Range/Units 13:45 13:45 13:45 WBC (4.8-10.8) X10*3/uL RBC (4.60-5.80) X10*6/uL Hgb (14.0-18.0) g/dl Hct (42.0-52.0) % MCV (80.0-98.0) fL MCH (27.0-33.0) pg MCHC (31.0-36.0) g/dl RDW (11.0-16.0) % Plt Count (160-400) X10*3/uL MPV (9.4-12.4) fL Immature Gran % (Auto) (0.0-0.4) % Neut % (Auto) (45-73) % Lymph % (Auto) (20-40) % [place] % (Auto) (2-11) % Eos % (Auto) (0-4) % Baso % (Auto) (0-2) % Lymph # (Auto) (1.2-4.9) X10*3/uL [place] # (Auto) (0.1-1.2) X10*3/uL Eos # (Auto) (0.0-0.4) X10*3/uL Baso # (Auto) (0.0-0.2) X10*3/uL Abs Immat Gran (auto) (0.00-0.03) X10*3/uL Absolute Neuts (auto) (2.0-8.3) x10*3/uL Absolute Nucleated RBC (0.0-0.012) X10*3/uL Nucleated RBC % (auto) (0.0-0.2) /100WBC Sodium (135-145) mmol/L Potassium (3.3-5.1) mmol/L Chloride (96-108) mmol/L Carbon Dioxide (22-29) mmol/L Anion Gap (12-20) BUN (9-16) mg/dL Creatinine (0.5-1.4) mg/dL Estim Creat Clear Calc Estimated GFR Random Glucose (60-115) mg/dL Calcium (8.4-10.2) mg/dL Total Bilirubin (0.0-1.0) mg/dL Direct Bilirubin (0.0-0.5) mg/dL AST (5-37) U/L ALT (0-40) U/L Alkaline Phosphatase (39-117) U/L Total Creatine Kinase (38-174) U/L Troponin I High Sens (<3.5-35.0) ng/L B-Natriuretic Peptide 35 (<100) pg/mL Total Protein (6.5-8.0) g/dL Albumin (3.5-5.0) g/dL Lipase (8-78) U/L Urine Color Yellow Urine Appearance Clear Urine pH 7.5 (5.0-9.0) Ur Specific [place] 1.010 (1.005-1.025) Urine Protein Negative (Neg-Trace) mg/dL Urine Glucose (UA) Negative (Negative) mg/dL Urine Ketones Negative (Negative) mg/dL Urine Blood Negative (Negative) Urine Nitrite Negative (Negative) Ur Leukocyte Esterase Negative (Negative) Influenza Type A (PCR) NEGATIVE (Negative) Influenza Type B (PCR) NEGATIVE (Negative) RSV RNA Qual (PCR) NEGATIVE (Negative) SARS-CoV-2 RNA (RT-PCR) NEGATIVE (Negative) Independent Interpretation I performed an independent interpretation of an: Plain X-Ray (Chest, no acute intrathoracic pathology.) and Ultrasound (Bilateral lower extremities: No DVT.) Discharge Plan Discharge Clinical Impression: Lower extremity edema Patient Disposition: Home, Self-Care Instructions: Leg Edema (ED) Prescriptions: No Action amlodipine 10 mg Tablet 10 mg PO DAILY 30 Days Qty: 30 1RF Protocol: Hold for SBP< HOLD for SBP < : 90 clonidine HCl 0.2 mg Tablet 0.2 mg PO Q4H PRN (Reason: Anxiety/Restlessness) 30 Days Qty: 90 0RF Protocol: Hold for SBP< HOLD for SBP < : 90 lisinopril 10 mg Tablet 10 mg PO DAILY 30 Days Qty: 30 1RF Protocol: Hold for SBP< HOLD for SBP < : 90 hydroxyzine HCl 25 mg Tablet 25 mg PO Q6H PRN (Reason: Anxiety) 30 Days Qty: 90 0RF trazodone 50 mg Tablet 150 mg PO BEDTIME 30 Days Qty: 90 1RF hydrochlorothiazide 25 mg Tablet 25 mg PO DAILY 30 Days Qty: 30 1RF Protocol: Hold for SBP< HOLD for SBP < : 90 melatonin 3 mg Tablet 3 mg PO BEDTIME PRN (Reason: sleep) 30 Days Qty: 30 1RF sertraline [Zoloft] 100 mg tablet 100 mg PO DAILY 30 Days Qty: 30 1RF quetiapine 25 mg Tablet 75 mg PO BID PRN (Reason: anxiety) 30 Days Qty: 180 1RF
[2023-03-06 13:52] LABS: MANUAL DIFF FLAG NO
[2023-03-06 13:54] LABS: Appearance Urine Clear; Basophils Absolute Auto 0.1 X10*3/uL (0.0-0.2); Basophils Percent Auto 0.5 % (0-2); Color Urine Yellow; Eosinophils Absolute Auto 0.4 X10*3/uL (0.0-0.4); Eosinophils Percent Auto 3.3 % (0-4); Glucose Urine UA Negative (Negative); Hematocrit 44.4 % (42.0-52.0); Hemoglobin 14.9 g/dl (14.0-18.0); Imm Gran Abs Auto 0.26 X10*3/uL (0.00-0.03); Imm Gran Pct Auto 1.9 % (0.0-0.4); Leukocyte Esterase Urine Negative (Negative); Lymphocytes Absolute Auto 1.6 X10*3/uL (1.2-4.9); Mean Corpuscular HGB Conc 33.6 g/dl (31.0-36.0); Mean Corpuscular Hemoglobin 28.8 pg (27.0-33.0); Mean Corpuscular Volume 85.9 fL (80.0-98.0); Mean Platelet Volume 8.8 fL (9.4-12.4); Monocytes Absolute Auto 1.1 X10*3/uL (0.1-1.2); Monocytes Percent Auto 8.3 % (2-11); Nitrite Urine Negative (Negative); PH 7.5 (5.0-9.0); Platelet Count 298 X10*3/uL (160-400); Red Blood Count 5.17 X10*6/uL (4.60-5.80); Red Cell Distribution Width 12.5 % (11.0-16.0); Urine Blood Negative (Negative); Urine Ketones Negative (Negative); Urine Protein Negative (Neg-Trace); White Blood Count 13.5 X10*3/uL (4.8-10.8)
[2023-03-06 14:20] LABS: B Type Natriuretic Peptide 35 pg/mL (<100)
[2023-03-06 14:28] LABS: Troponin-I High Sensitivity < 2.7 ng/L (<3.5-35.0)
[2023-03-06 14:51] LABS: Influenza A PCR NEGATIVE (Negative); Influenza B PCR NEGATIVE (Negative); Resp Syncy Virus RNA Qual PCR NEGATIVE (Negative); SARS COV2 PCR INHOUSE NEGATIVE (Negative)
[2023-03-06 14:54] VITALS: BP 115/75; PULSE 86; RESP 18; TEMP 36.9; O2SAT 98
[2023-03-06 14:54] LABS: Alanine Aminotransferase 52 U/L (0-40); Alkaline Phosphatase 105 U/L (39-117); Anion Gap 13 (12-20); Aspartate Amino Transferase 31 U/L (5-37); Bilirubin Direct < 0.2 mg/dL (0.0-0.5); Bilirubin Total 0.2 mg/dL (0.0-1.0); Blood Urea Nitrogen 18 mg/dL (9-16); Calcium 9.3 mg/dL (8.4-10.2); Carbon Dioxide 27 mmol/L (22-29); Chloride 101 mmol/L (96-108); Creatinine Clr Calc Pharmacy 106.9; Estimated Glomerular Filt Rate > 60; Glucose Random 102 mg/dL (60-115); Lipase 33 U/L (8-78); Potassium 4.4 mmol/L (3.3-5.1); Sodium 137 mmol/L (135-145); Total Protein 6.7 g/dL (6.5-8.0)
--- NOTE | 2023-03-06 16:39 | MHC.RECOVSUP ---
? Reason for consult Recovery support o Current location: ED14 o Identified substance use concern: NA - Seeking ATS (detox) - Support <del>?</del> <del>Intervention:</del> <del>o</del> <del>ATS</del> <del>bed</del> <del>search</del> <del>started/completed/in</del> <del>process</del> <del>o</del> <del>MAT</del> <del>started</del> <del>or</del> <del>to</del> <del>be</del> <del>started</del> <del>o</del> <del>Community</del> <del>resources</del> <del>provided</del> <del>o</del> <del>Harm</del> <del>reduction</del> <del>discussion</del> <del>?</del> <del>Plan:</del> <del>o</del> <del>Referral</del> <del>to</del> <del>CCC</del> <del>o</del> <del>Bed</del> <del>search</del> <del>in</del> <del>progress</del> <del>to</del> <del>o</del> <del>Follow</del> <del>up</del> <del>tomorrow</del> <del>o</del> <del>Patient</del> <del>awaiting</del> <del>crisis</del> <del>evaluation</del> <del>o</del> <del>Patient</del> <del>to</del> <del>follow</del> <del>up</del> <del>with</del> <del>[facility]</del> <del>after</del> <del>discharge</del> ? Additional information: Patient needed a ride back to [place]
== END 2023-03-06 16:36 | disposition home or self-care (01) ==
PROVIDERS: Emergency Provider Emergency Medicine
DX: R60.0 Localized edema (principal); F17.210 Nicotine dependence, cigarettes, uncomplicated; Z20.822 Contact with and (suspected) exposure to COVID-19; Z20.828 Contact with and (suspected) exposure to other viral communicable diseases; Z79.899 Other long term (current) drug therapy
CPT/HCPCS: 0241U; 36415; 71045; 80048; 80076; 81003; 82550; 83690; 83880; 84484; 85025; 93970; 99284